=== PATIENT | male | born 1990 | race Two or more races ===

== ENCOUNTER 2021-02-27 12:40 | Outpatient (REF) | payer MEDICAID, SELFPAY ==
--- NOTE | ~2021-02-27 | XR_ITS ---
EXAMINATION: LUMBAR SPINE AND CERVICAL SPINE CLINICAL INFORMATION: Lumbago with sciatica left side COMPARISON: None TECHNIQUE: 5 views cervical spine. Lumbar spine 3 views. FINDINGS: Lumbar spine: There is normal lumbar lordosis. The vertebral heights, alignment and disc heights are normal. The paravertebral soft tissues are normal. Cervical spine: There is normal cervical lordosis. The vertebral heights, alignment and disc heights are normal. The neural foramina are widely patent bilaterally. No acute fracture, dislocation or lytic process seen. The prevertebral soft tissues are normal. XR/XR cervical spine 4V IMPRESSION: Unremarkable lumbar spine exam. Unremarkable cervical spine exam.
--- NOTE | ~2021-02-27 | XR_ITS ---
EXAMINATION: LUMBAR SPINE AND CERVICAL SPINE CLINICAL INFORMATION: Lumbago with sciatica left side COMPARISON: None TECHNIQUE: 5 views cervical spine. Lumbar spine 3 views. FINDINGS: Lumbar spine: There is normal lumbar lordosis. The vertebral heights, alignment and disc heights are normal. The paravertebral soft tissues are normal. Cervical spine: There is normal cervical lordosis. The vertebral heights, alignment and disc heights are normal. The neural foramina are widely patent bilaterally. No acute fracture, dislocation or lytic process seen. The prevertebral soft tissues are normal. XR/XR lumbar spine 2-3V IMPRESSION: Unremarkable lumbar spine exam. Unremarkable cervical spine exam.
== END 2021-02-27 12:41 | disposition home or self-care (01) ==
LOC: HO.XRAY 12:40
PROVIDERS: PCP Internal Medicine Geriatric Medicine; Visit Provider Emergency Medicine
DX: M54.2 Cervicalgia (principal); M54.42 Lumbago with sciatica, left side
CPT/HCPCS: 72050; 72100

== ENCOUNTER 2021-05-09 19:52 | Emergency (ER) | payer MEDICAID, SELFPAY | END 2021-05-09 21:26 | disposition left against medical advice (07) | PROVIDERS: Emergency Provider Emergency Medicine | DX: R19.7 Diarrhea, unspecified (principal) ==

== ENCOUNTER 2021-11-12 21:54 | Emergency (ER) | payer MEDICAID, SELFPAY ==
--- NOTE | 2021-11-12 | ECG_ITS ---
Test Reason : ABDOMINAL PAIN Blood Pressure : / mmHG Vent. Rate : 130 BPM Atrial Rate : 130 BPM P-R Int : 136 ms QRS Dur : 088 ms QT Int : 300 ms P-R-T Axes : 077 089 011 degrees QTc Int : 441 ms Sinus tachycardia Right atrial enlargement Nonspecific ST abnormality Abnormal ECG No previous ECGs available Referred By: Generic ED Physician Electronically Signed By:ESTHER FRITZ
--- NOTE | ~2021-11-12 | CT_ITS ---
EXAMINATION: CT ABDOMEN AND PELVIS WITHOUT CONTRAST CLINICAL INFORMATION: Question kidney stone COMPARISON: None TECHNIQUE: Multidetector volumetric imaging was performed from the superior aspect of the liver through the pubic symphysis. Sagittal and coronal reformatted images were obtained on the technologist's workstation. This CT examination was performed using dose optimization techniques as appropriate, variously including the following: *Automated exposure control *Adjustment of mA and/or kV according to patient size (this includes techniques or standardized protocols for targeted exams where dose is matched to indication/reason for exam; i.e. extremities or head) *Use of iterative reconstruction technique DLP: 349 mGy-cm FINDINGS: LUNG BASES: The visualized lung bases are unremarkable. LIVER, GALLBLADDER, AND BILIARY TREE: The liver is normal in size, shape, and attenuation. No focal hepatic lesion or biliary ductal dilatation is present. The gallbladder is unremarkable with no evidence of radiopaque gallstones, gallbladder wall thickening, or obvious pericholecystic inflammatory changes. PANCREAS: Unremarkable. SPLEEN: Unremarkable. ADRENAL GLANDS: Unremarkable. KIDNEYS AND URETERS: The kidneys are normal in size, shape, and attenuation. No hydronephrosis, hydroureter, or calculi seen. No perinephric stranding. BLADDER: Unremarkable. GASTROINTESTINAL TRACT: The small and large bowel are unremarkable. The appendix is unremarkable. ABDOMINAL WALL: No significant hernia is appreciated. LYMPH NODES: Normal. VASCULAR: Unremarkable. PELVIC VISCERA: Unremarkable. OSSEOUS STRUCTURES: Unremarkable. CT/CT abdomen pelvis wo IV con IMPRESSION: No significant abnormality. No renal calculi are detected. Fleischner guidelines were followed.
--- NOTE | ~2021-11-12 | US_ITS ---
EXAMINATION: US SCROTUM CLINICAL INFORMATION: Right testicular pain.. COMPARISON: None TECHNIQUE: A sonogram of the scrotum was performed assessing bates-scale appearance and color Doppler flow. Spectral Doppler analysis of the arterial and venous flow were performed in the testes bilaterally. FINDINGS: RIGHT: Right testicle measures 4.2 x 2 x 2.4 cm, volume 10.7 mL. No focal testicular parenchymal lesions are visualized. Spectral Doppler analysis of the arterial and venous flow is normal in the right testis. Right epididymal head is normal in size. No right hydrocele or varicocele is seen. Right epididymal Doppler flow is normal. LEFT: Left testicle measures 4.7 x 1.9 x 2.8 cm, volume 13.3 mL. No focal testicular parenchymal lesions are visualized. Spectral Doppler analysis of the arterial and venous flow is normal in the left testis. Left epididymal head is normal in size. No left hydrocele or varicocele is seen. Left epididymal Doppler flow is normal. US/US scrotum IMPRESSION: Normal testicular ultrasound. No testicular torsion.
--- NOTE | ~2021-11-12 | US_ITS ---
EXAMINATION: US SCROTUM CLINICAL INFORMATION: Right testicular pain.. COMPARISON: None TECHNIQUE: A sonogram of the scrotum was performed assessing bates-scale appearance and color Doppler flow. Spectral Doppler analysis of the arterial and venous flow were performed in the testes bilaterally. FINDINGS: RIGHT: Right testicle measures 4.2 x 2 x 2.4 cm, volume 10.7 mL. No focal testicular parenchymal lesions are visualized. Spectral Doppler analysis of the arterial and venous flow is normal in the right testis. Right epididymal head is normal in size. No right hydrocele or varicocele is seen. Right epididymal Doppler flow is normal. LEFT: Left testicle measures 4.7 x 1.9 x 2.8 cm, volume 13.3 mL. No focal testicular parenchymal lesions are visualized. Spectral Doppler analysis of the arterial and venous flow is normal in the left testis. Left epididymal head is normal in size. No left hydrocele or varicocele is seen. Left epididymal Doppler flow is normal. US/US scrotum doppler IMPRESSION: Normal testicular ultrasound. No testicular torsion.
[2021-11-12 22:22] VITALS: BP 142/88; PULSE 124; RESP 18; TEMP 36.7; O2SAT 98; BMI 21.1
--- NOTE | 2021-11-12 23:34 | ED_ITS ---
HPI - General Adult General Chief complaint: General Medical Stated complaint: testicular pain Time Seen by Provider: 11/12/21 22:37 History of Present Illness HPI narrative: Patient is 31 years old presents today with having right-sided right lower quadrant pain radiating down to the testicle. The pain is sharp sudden onset patient feels very weak. Sexually active 1 partner. Denies any penile discharge. No vomiting no abdominal surgery in the past. Patient is from home Related Data Previous Rx's Medication Instructions Recorded ibuprofen 400 mg tablet 400 mg PO Q6H PRN pain #20 tabs 11/13/21 Allergies Allergy/AdvReac Type Severity Reaction Status Date / Time No Known Allergies Allergy Verified 11/12/21 22:22 [No Known Allergies*] Review of Systems Review of Systems: Positive right lower quadrant pain positive nausea Positive testicular pain Yes all other systems are reviewed and are negative [facility] Past Medical History Attestation statement: The following information was validated with the patient. Social History Social History Advance Directives: No Advance Directives Information Provided: No Physical Exam ED Vital Signs: Vital Signs - 24 hr 11/12/21 22:22 11/13/21 00:02 11/13/21 00:08 Temperature 98.1 F 98.5 F 98.1 F Pulse Rate 124 H 105 H 93 Respiratory Rate 18 19 10 L Blood Pressure 142/88 H 127/76 107/48 L Pulse Oximetry 98 97 96 Oxygen Delivery Method Room Air Room Air Room Air BMI result Body Mass Index 21.1 Appearance: Alert. Oriented X3. No acute distress. Eyes: Pupils equal, round and reactive to light. ENT: Pharynx normal. Neck: Normal inspection. Neck supple. No lymph nodes noted. No crepitus CVS: Normal heart rate and rhythm. Pulses normal. Normal S1 and S2 Respiratory: No respiratory distress. Breath sounds normal. No Wheezing. No rales Abdomen: Soft and nontender. No rigidity. No distention. good BS x4 Skin: Skin warm and dry. Normal skin color. Normal skin turgor. exam there is cream is Elton reflex that is intact. There is no testicular tenderness on palpatio of the testicles. The testicles are nonenlarged. There is no gross hernia that was palpable. There is no discharge and stripping of the penis. Extremities: No lower extremity edema. Neurovascular intact to all extremities. No Lacerations. No Rash Neuro: Oriented X 3. No motor deficit. No sensory deficit. Moving all extermities. No slurred speech Medical Decision Making MDM Narrative Medical decision making narrative: Ultrasound of the testicle was negative for any acute evidence of inflammation in epididymis. No evidence for torsion. Patient's urine showed no signs of infection. Positive history of diabetes which is known to patient. Patient's CT scan of the abdomen negative for any acute evidence of kidney stone, obstruction, abscess. No evidence for appendicitis. Will discharge patient home. Lab Data Result diagrams: 11/12/21 23:59 11/13/21 00:23 Labs: Lab Results 11/12/21 11/13/21 11/13/21 Range/Units 23:59 00:23 01:31 WBC 9.6 (4.8-10.8) X10*3/uL RBC 5.22 (4.60-5.80) X10*6/uL Hgb 15.3 (14.0-18.0) g/dl Hct 43.5 (42.0-52.0) % MCV 83.3 (80.0-98.0) fL MCH 29.3 (27.0-33.0) pg MCHC 35.2 (31.0-36.0) g/dl RDW 11.9 (11.0-16.0) % Plt Count 240 (160-400) X10*3/uL MPV 10.2 (9.4-12.4) fL Immature Gran % (Auto) 0.6 H (0.0-0.4) % Neut % (Auto) 69.9 (45-73) % Lymph % (Auto) 17.8 L (20-40) % [place] % (Auto) 11.2 H (2-11) % Eos % (Auto) 0.0 (0-4) % Baso % (Auto) 0.5 (0-2) % Lymph # (Auto) 1.7 (1.2-4.9) X10*3/uL [place] # (Auto) 1.1 (0.1-1.2) X10*3/uL Eos # (Auto) 0.0 (0.0-0.4) X10*3/uL Baso # (Auto) 0.1 (0.0-0.2) X10*3/uL Abs Immat Gran (auto) 0.06 H (0.00-0.03) X10*3/uL Absolute Neuts (auto) 6.7 (2.0-8.3) x10*3/uL Absolute Nucleated RBC 0.000 (0.0-0.012) X10*3/uL Nucleated RBC % (auto) 0.0 (0.0-0.2) /100WBC Sodium 140 (135-145) mmol/L Potassium 3.3 (3.3-5.1) mmol/L Chloride 104 (96-108) mmol/L Carbon Dioxide 25 (22-29) mmol/L Anion Gap 14 (12-20) BUN 12 (9-16) mg/dL Creatinine 0.75 (0.5-1.4) mg/dL Estim Creat Clear Calc 119.9 Estimated GFR > 60 Random Glucose 134 H (60-115) mg/dL Calcium 9.6 (8.4-10.2) mg/dL Urine Color Yellow Urine Appearance Clear Urine pH 6.0 (5.0-9.0) Ur Specific [place] 1.020 (1.005-1.025) Urine Protein Negative (Neg-Trace) mg/dL Urine Glucose (UA) >=1000 H (Negative) mg/dL Urine Ketones Negative (Negative) mg/dL Urine Blood Negative (Negative) Urine Nitrite Negative (Negative) Ur Leukocyte Esterase Negative (Negative) Urine RBC 0-2 (0-2) /HPF Urine WBC 0-5 (0-5) /HPF Ur Squamous Epith Cells 0-2 (0-2) /HPF Urine Bacteria None Seen (None Seen) Hyaline Casts 0-2 (0-2) /LPF Discharge Plan Discharge Clinical Impression: Abdominal pain Patient Disposition: Home, Self-Care Instructions: Abdominal Pain (ED) Prescriptions: New ibuprofen 400 mg tablet 400 mg PO Q6H PRN (Reason: pain) Qty: 20 0RF Referrals: Physician,Unknown J [Primary Care Provider] -
[2021-11-13 00:02] VITALS: BP 127/76; PULSE 105; RESP 19; TEMP 36.9; O2SAT 97
[2021-11-13] MEDS: Ketorolac Tromethamine 30 MG/ML VIAL IVPUSH (00:04)
[2021-11-13] MEDS: 0.9 % Sodium Chloride 1,000 ML 999 ML IV (00:04)
[2021-11-13 00:08] VITALS: BP 107/48; PULSE 93; RESP 10; TEMP 36.7; O2SAT 96
[2021-11-13 00:37] LABS: MANUAL DIFF FLAG NO
[2021-11-13 00:53] LABS: Basophils Absolute Auto 0.1 X10*3/uL (0.0-0.2); Basophils Percent Auto 0.5 % (0-2); Hematocrit 43.5 % (42.0-52.0); Hemoglobin 15.3 g/dl (14.0-18.0); Imm Gran Abs Auto 0.06 X10*3/uL (0.00-0.03); Imm Gran Pct Auto 0.6 % (0.0-0.4); Lymphocytes Absolute Auto 1.7 X10*3/uL (1.2-4.9); Lymphocytes Percent Auto 17.8 % (20-40); Mean Corpuscular HGB Conc 35.2 g/dl (31.0-36.0); Mean Corpuscular Hemoglobin 29.3 pg (27.0-33.0); Mean Corpuscular Volume 83.3 fL (80.0-98.0); Mean Platelet Volume 10.2 fL (9.4-12.4); Monocytes Absolute Auto 1.1 X10*3/uL (0.1-1.2); Monocytes Percent Auto 11.2 % (2-11); Neutrophils Absolute Auto 6.7 x10*3/uL (2.0-8.3); Neutrophils Percent Auto 69.9 % (45-73); Platelet Count 240 X10*3/uL (160-400); Red Blood Count 5.22 X10*6/uL (4.60-5.80); Red Cell Distribution Width 11.9 % (11.0-16.0); White Blood Count 9.6 X10*3/uL (4.8-10.8)
[2021-11-13 01:11] LABS: Anion Gap 14 (12-20); Blood Urea Nitrogen 12 mg/dL (9-16); Calcium 9.6 mg/dL (8.4-10.2); Carbon Dioxide 25 mmol/L (22-29); Chloride 104 mmol/L (96-108); Creatinine Clr Calc Pharmacy 119.9; Estimated Glomerular Filt Rate > 60; Glucose Random 134 mg/dL (60-115); Potassium 3.3 mmol/L (3.3-5.1); Sodium 140 mmol/L (135-145)
[2021-11-13 01:40] LABS: Appearance Urine Clear; Color Urine Yellow; Glucose Urine UA >=1000 mg/dL (Negative); Leukocyte Esterase Urine Negative (Negative); Nitrite Urine Negative (Negative); UMIC TRIGGER UACC YES; Urine Blood Negative (Negative); Urine Ketones Negative (Negative); Urine Protein Negative (Neg-Trace)
[2021-11-13 01:45] LABS: Bacteria Urine None Seen (None Seen); Hyaline Casts Urine 0-2 /LPF (0-2); RBC Urine 0-2 /HPF (0-2); Squamous Epithelial Cell Urine 0-2 /HPF (0-2); WBC Urine 0-5 /HPF (0-5)
[2021-11-13 03:17] LABS: CT PCR NOT DETECTED (Not Detect.); NG PCR NOT DETECTED (Not Detect.)
== END 2021-11-13 02:10 | disposition home or self-care (01) ==
PROVIDERS: Physician Assistant; Emergency Provider Emergency Medicine Emergency Medical Services
DX: R10.31 Right lower quadrant pain (principal); E11.9 Type 2 diabetes mellitus without complications
CPT/HCPCS: 36415; 74176; 76870; 80048; 81001; 85025; 87491; 87591; 93005; 93975; 96374; 99284; J1885

== ENCOUNTER 2021-12-15 12:48 | Emergency (ER) | payer MEDICAID, SELFPAY ==
--- NOTE | ~2021-12-15 | XR_ITS ---
EXAMINATION: XR CHEST CLINICAL INFORMATION: Chest wall pain. COMPARISON: None TECHNIQUE: 2 views of the chest were obtained. FINDINGS: No significant abnormality is noted involving the heart, lungs, mediastinum, bony thorax or soft tissues. XR/XR chest 2V IMPRESSION: No acute cardiopulmonary process.
--- NOTE | 2021-12-15 12:56 | ECG_ITS ---
Test Reason : CHEST PAIN Blood Pressure : / mmHG Vent. Rate : 103 BPM Atrial Rate : 103 BPM P-R Int : 120 ms QRS Dur : 086 ms QT Int : 346 ms P-R-T Axes : 070 083 041 degrees QTc Int : 453 ms Sinus tachycardia Otherwise normal ECG When compared with ECG of 12-NOV-2021 22:36, T wave inversion no longer evident in Inferior leads Referred By: Generic ED Physician Electronically Signed By:ANA APULA LYLES MD
[2021-12-15 13:03] VITALS: BP 137/82; PULSE 104; RESP 16; TEMP 36.6; O2SAT 99; BMI 23.6
[2021-12-15 13:16] LABS: MANUAL DIFF FLAG NO
[2021-12-15 13:17] LABS: Basophils Absolute Auto 0.1 X10*3/uL (0.0-0.2); Basophils Percent Auto 0.9 % (0-2); Eosinophils Percent Auto 0.2 % (0-4); Hemoglobin 15.9 g/dl (14.0-18.0); Imm Gran Abs Auto 0.01 X10*3/uL (0.00-0.03); Imm Gran Pct Auto 0.2 % (0.0-0.4); Lymphocytes Absolute Auto 1.1 X10*3/uL (1.2-4.9); Mean Corpuscular HGB Conc 34.6 g/dl (31.0-36.0); Mean Corpuscular Hemoglobin 29.3 pg (27.0-33.0); Mean Corpuscular Volume 84.9 fL (80.0-98.0); Mean Platelet Volume 10.1 fL (9.4-12.4); Monocytes Absolute Auto 0.6 X10*3/uL (0.1-1.2); Monocytes Percent Auto 10.5 % (2-11); Neutrophils Absolute Auto 3.9 x10*3/uL (2.0-8.3); Neutrophils Percent Auto 68.2 % (45-73); Platelet Count 273 X10*3/uL (160-400); Red Blood Count 5.42 X10*6/uL (4.60-5.80); Red Cell Distribution Width 11.9 % (11.0-16.0); White Blood Count 5.6 X10*3/uL (4.8-10.8)
[2021-12-15 13:42] LABS: Troponin-I High Sensitivity < 3.5 ng/L (<3.5-35.0)
[2021-12-15 13:46] LABS: Anion Gap 16 (12-20); Blood Urea Nitrogen 13 mg/dL (9-16); Calcium 9.7 mg/dL (8.4-10.2); Carbon Dioxide 26 mmol/L (22-29); Chloride 93 mmol/L (96-108); Creatinine Clr Calc Pharmacy 67.5; Estimated Glomerular Filt Rate 58; Glucose Random 612 mg/dL (60-115); Potassium 4.4 mmol/L (3.3-5.1); Sodium 131 mmol/L (135-145)
--- NOTE | 2021-12-15 13:55 | ED_ITS ---
HPI - General Adult General Chief complaint: General Medical Stated complaint: chest pain/neck pain Time Seen by Provider: 12/15/21 13:53 Source: patient Mode of arrival: ambulatory Limitations: no limitations History of Present Illness HPI narrative: 31 yo male with history of type 1 diabetes diagnosed at age 28 who presents to the ER for evaluation of intermittent left sided chest pains as well as intermittent blurred vision. He states yesterday morning at 2am he woke up with some discomfort in his left chest, sharp that would wax/wane and come and go. No associated SOB, nausea or diaphoresis. He went to work where he developed blurred vision. He denies headache. He states his is in [place], he has been taking care of his children by himself and thinks he may have missed a Lantus dose by mistake. +polyuria and polydipsia. No fever or chills. Chest pain currently very mild. MD complaint: chest pain and blurred vision Onset (ago): day(s) (2) Location: eyes and chest Radiation: non-radiation Severity: moderate Quality: aching and sharp Pain Consistency: intermittent Relieving factors: none Exacerbating factors: none Associated symptoms: chest pain Treatments prior to arrival: none Related Data Previous Rx's Medication Instructions Recorded ibuprofen 400 mg tablet 400 mg PO Q6H PRN pain #20 tabs 11/13/21 Allergies Allergy/AdvReac Type Severity Reaction Status Date / Time No Known Allergies Allergy Verified 11/12/21 22:22 [No Known Allergies*] Review of Systems Review of Systems: Constitutional: No Fever, No Chills ENT/Mouth: No sore throat, No Rhinorrhea, No Swallowing Difficulty Eyes: No Eye Pain, No Swelling, No Redness, +Blurred vision Cardiovascular: + Chest Pain, No SOB, No Orthopnea, No Edema Respiratory: No Cough, No Sputum, No Wheezing, No dyspnea Gastrointestinal: No Nausea, No Vomiting, No Diarrhea, No abdominal Pain, No Hematochezia, No Melena Genitourinary: No Dysuria, No Urinary Frequency, No Hematuria Musculoskeletal: No joint pain, No Myalgias Skin: No Skin Lesions, No rash Neuro: No Weakness, No Numbness, +Dizziness, No Headache Psych: No Anxiety/Panic, No Depression Heme/Lymph: No Bruising, No Lymphadenopathy Endocrine: + Polyuria, + Polydipsia PMFSH Social History Social History Advance Directives: No Advance Directives Information Provided: Yes Physical Exam ED Vital Signs: Vital Signs - 24 hr 12/15/21 13:03 12/15/21 14:00 12/15/21 15:27 Temperature 98 F 97.6 F 98.0 F Pulse Rate 104 H 80 83 Respiratory Rate 16 16 16 Blood Pressure 137/82 148/66 H 141/68 H Pulse Oximetry 99 100 98 Oxygen Delivery Method Room Air Room Air Room Air BMI result Body Mass Index 23.6 Appearance: Alert. Oriented X3. No acute distress. Eyes: Pupils equal, round and reactive to light. ENT: Pharynx normal. Neck: Normal inspection. Neck supple. CVS: Normal heart rate and rhythm. Pulses normal. Respiratory: No respiratory distress. Breath sounds normal. Abdomen: Soft and nontender. +BS x4 Skin: Skin warm and dry. Normal skin color. Normal skin turgor. No rashes. Extremities: No lower extremity edema. Neuro: Oriented X 3. No motor deficit. No sensory deficit. CN II-XII intact. Steady gait Course Course Course Narrative: 31 yo male with history of DM1 here with hyperglycemia to 600s with reports of left sided chest discomfort x1-2 days and blurred vision. EKG abnormal but overall improved from prior. Minimal chest pain now, +chest wall tenderness. CXR clear. Labs without anion gap, bicarb normal. Not DKA. No change in mental status to suggest HHS. Will treat with IVF x2 L and 5 units IV insulin for now. Will monitor closely. Reevaluation(s) Reevaluation #1: repeat glucose in the 200s. He is feeling much better and would like to go home. He is stable for d/c home. Encouraged med and dietary compliance. Stable for d/c home. Will refer to cardiology given his abnormal EKG, family history and risk factors. Medical Decision Making Lab Data Result diagrams: 12/15/21 13:13 12/15/21 13:13 Labs: Lab Results 12/15/21 12/15/21 12/15/21 Range/Units 13:13 13:13 13:13 WBC 5.6 (4.8-10.8) X10*3/uL RBC 5.42 (4.60-5.80) X10*6/uL Hgb 15.9 (14.0-18.0) g/dl Hct 46.0 (42.0-52.0) % MCV 84.9 (80.0-98.0) fL MCH 29.3 (27.0-33.0) pg MCHC 34.6 (31.0-36.0) g/dl RDW 11.9 (11.0-16.0) % Plt Count 273 (160-400) X10*3/uL MPV 10.1 (9.4-12.4) fL Immature Gran % (Auto) 0.2 (0.0-0.4) % Neut % (Auto) 68.2 (45-73) % Lymph % (Auto) 20.0 (20-40) % [place] % (Auto) 10.5 (2-11) % Eos % (Auto) 0.2 (0-4) % Baso % (Auto) 0.9 (0-2) % Lymph # (Auto) 1.1 L (1.2-4.9) X10*3/uL [place] # (Auto) 0.6 (0.1-1.2) X10*3/uL Eos # (Auto) 0.0 (0.0-0.4) X10*3/uL Baso # (Auto) 0.1 (0.0-0.2) X10*3/uL Abs Immat Gran (auto) 0.01 (0.00-0.03) X10*3/uL Absolute Neuts (auto) 3.9 (2.0-8.3) x10*3/uL Absolute Nucleated RBC 0.000 (0.0-0.012) X10*3/uL Nucleated RBC % (auto) 0.0 (0.0-0.2) /100WBC Sodium 131 L (135-145) mmol/L Potassium 4.4 D (3.3-5.1) mmol/L Chloride 93 L (96-108) mmol/L Carbon Dioxide 26 (22-29) mmol/L Anion Gap 16 (12-20) BUN 13 (9-16) mg/dL Creatinine 1.43 H (0.5-1.4) mg/dL Estim Creat Clear Calc 67.5 Estimated GFR 58 POC Glucose (60-115) mg/dL Random Glucose 612 H* (60-115) mg/dL Calcium 9.7 (8.4-10.2) mg/dL Troponin I High Sens < 3.5 (<3.5-35.0) ng/L 12/15/21 Range/Units 15:22 WBC (4.8-10.8) X10*3/uL RBC (4.60-5.80) X10*6/uL Hgb (14.0-18.0) g/dl Hct (42.0-52.0) % MCV (80.0-98.0) fL MCH (27.0-33.0) pg MCHC (31.0-36.0) g/dl RDW (11.0-16.0) % Plt Count (160-400) X10*3/uL MPV (9.4-12.4) fL Immature Gran % (Auto) (0.0-0.4) % Neut % (Auto) (45-73) % Lymph % (Auto) (20-40) % [place] % (Auto) (2-11) % Eos % (Auto) (0-4) % Baso % (Auto) (0-2) % Lymph # (Auto) (1.2-4.9) X10*3/uL [place] # (Auto) (0.1-1.2) X10*3/uL Eos # (Auto) (0.0-0.4) X10*3/uL Baso # (Auto) (0.0-0.2) X10*3/uL Abs Immat Gran (auto) (0.00-0.03) X10*3/uL Absolute Neuts (auto) (2.0-8.3) x10*3/uL Absolute Nucleated RBC (0.0-0.012) X10*3/uL Nucleated RBC % (auto) (0.0-0.2) /100WBC Sodium (135-145) mmol/L Potassium (3.3-5.1) mmol/L Chloride (96-108) mmol/L Carbon Dioxide (22-29) mmol/L Anion Gap (12-20) BUN (9-16) mg/dL Creatinine (0.5-1.4) mg/dL Estim Creat Clear Calc Estimated GFR POC Glucose 227 H (60-115) mg/dL Random Glucose (60-115) mg/dL Calcium (8.4-10.2) mg/dL Troponin I High Sens (<3.5-35.0) ng/L Scores Heart Score History: -0- slightly suspicious ECG: -1- non specific repolarization disturbance Age: -0- < or = 45 Risk factory: -1- 1 or 2 risk factors Troponin: -0- < or = normal limit Score: 2 Risk: 1.7% Critical Care Time Critical Care Time Critical Care Time: Yes Total Critical Care Time: 35 Attestation: I have personally provided critical care time exclusive of time spent on separately billable procedures. Time includes review of lab data, radiology results, frequent bedside reassessment and monitoring for potential decompensation. Intervention performed as documented. Discharge Plan Discharge Clinical Impression: Hyperglycemia Patient Disposition: Home, Self-Care Instructions: Diabetic Hyperglycemia (ED) Additional Instructions: Take your insulin every day as directed. Do not miss any doses. Count your carbs, avoid food high in carbohydrates and sugars. Your chest x-ray was normal. Your EKG was abnormal, but improved from October. Recommend following up with Cardiology - call the office to arrange an appointment. If you develop new or worsening symptoms call 911 or come back to the ER for further evaluation. Cardwell murray insulina todos los d?as seg?n las indicaciones. No te pierdas ninguna dosis. Cuente veronique carbohidratos, evite los alimentos ricos en carbohidratos y az?cares. Murray radiograf?a de t?rax fue normal. Murray electrocardiograma fue anormal, gunner mejor? a partir de . Recomiende hacer un seguimiento con Cardiolog?a: llame a la oficina para programar mariola crystal. Si desarrolla s?ntomas nuevos o que empeoran, llame al 911 o regrese a la roxanne de emergencias para mariola evaluaci?n adicional. Prescriptions: No Action ibuprofen 400 mg tablet 400 mg PO Q6H PRN (Reason: pain) Qty: 20 0RF Referrals: [facility] [Provider Group] (abnormal EKG) Print Language: Marshallese
[2021-12-15 14:00] VITALS: BP 148/66; PULSE 80; RESP 16; TEMP 36.4; O2SAT 100
[2021-12-15] MEDS: 0.9 % Sodium Chloride 1,000 ML 999 ML IVCONT (14:15)
[2021-12-15] MEDS: Insulin Regular, Human 100 UNIT/ML 3 ML VIAL IVPUSH (14:18)
--- NOTE | 2021-12-15 14:20 | PC.NURSE ---
iv inserted, vss, ivf hung per order, will continue to monitor
[2021-12-15] MEDS: Lactated Ringers 1,000 ML 999 ML IV (15:23)
[2021-12-15 15:27] VITALS: BP 141/68; PULSE 83; RESP 16; TEMP 36.7; O2SAT 98
--- NOTE | 2021-12-15 15:28 | PC.NURSE ---
repeat poc performed 227, second lt of fluid hung per order, vss, pt was found eating cookies, this nurse asked him to please not eat them, pt agreeable, will continue to monitor
[2021-12-15 15:33] LABS: Glucose, Whole Blood 227 mg/dL (60-115)
[2021-12-16 05:12] LABS: Hemoglobin A1c % > 14.0 %
== END 2021-12-15 16:44 | disposition home or self-care (01) ==
PROVIDERS: Physician Assistant; Emergency Provider Emergency Medicine
DX: E10.65 Type 1 diabetes mellitus with hyperglycemia (principal); R07.89 Other chest pain; M54.2 Cervicalgia; H53.8 Other visual disturbances; Z79.899 Other long term (current) drug therapy
CPT/HCPCS: 36415; 71046; 80048; 82947; 83036; 84484; 85025; 93005; 96365; 96375; 99284

== ENCOUNTER 2022-08-23 20:23 | Emergency (ER) | payer MEDICAID, SELFPAY ==
[2022-08-23 20:27] VITALS: BP 142/98; PULSE 113; O2SAT 96
[2022-08-23 20:30] VITALS: BP 121/86; PULSE 112; RESP 20; TEMP 37; O2SAT 95; BMI 20.4
--- NOTE | 2022-08-23 21:09 | PC.NURSE ---
Pt ambulatory to restroom with c-collar on. advised that he should get back into bed until medically cleared. adamant about using actual toilet and states its fine.
--- NOTE | 2022-08-23 21:31 | PC.NURSE ---
Pt with call light on at this time. self removed c-collar and monitor equipment stating he feels better and wanting to leave. ambulatory out of department with steady gait in no acute distress. advised to come back for worsening symptoms.
== END 2022-08-23 21:38 | disposition left against medical advice (07) ==
PROVIDERS: Emergency Provider Emergency Medicine
DX: Z04.1 Encounter for examination and observation following transport accident (principal); R00.0 Tachycardia, unspecified; R07.81 Pleurodynia; M25.512 Pain in left shoulder
CPT/HCPCS: 99281; 99284

== ENCOUNTER 2022-10-28 02:48 | Inpatient (IN) | payer MEDICAID, SELFPAY ==
[2022-10-28] VITALS (20 sets, daily range): BP systolic 97–163; BP diastolic 64–93; PULSE 85–109; RESP 16–30; TEMP 32.2–37.8; O2SAT 94–100; BMI 18.4
--- NOTE | ~2022-10-28 | CT_ITS ---
EXAMINATION: CT CHEST, ABDOMEN AND PELVIS WITH CONTRAST CLINICAL INFORMATION: Confusion. Concern for pneumonia. DKA. COMPARISON: CT abdomen and pelvis performed 11/12/2021. TECHNIQUE: Multidetector volumetric imaging was performed through the chest, abdomen and pelvis without intravenous contrast. Sagittal and coronal reformatted images were obtained on the technologist's workstation. Axial MIP volume rendering provided. This CT examination was performed using dose optimization techniques as appropriate, variously including the following: *Automated exposure control *Adjustment of mA and/or kV according to patient size (this includes techniques or standardized protocols for targeted exams where dose is matched to indication/reason for exam; i.e. extremities or head) *Use of iterative reconstruction technique DLP: 223.75+412.73 mGy-cm FINDINGS: CHEST: Motion slightly limits evaluation. Cloth Finishing Range Operator Chief: Unremarkable. Lungs: There is patchy consolidation at both lung bases. The lungs are otherwise clear. Mediastinum: The mediastinum is normal. Central vascular structures are unremarkable. No hilar or mediastinal lymphadenopathy. Pericardium/Pleura: There is no significant effusion. No pleural mass or thickening. Chest Wall/Axilla: Unremarkable. ABDOMEN/PELVIS: Liver, Gallbladder, Biliary Tree: The liver is normal in size and attenuation. No focal liver lesions are seen. There is no intrahepatic biliary duct dilatation. The gallbladder is normal in appearance. Pancreas: Unremarkable. Spleen: Unremarkable. Adrenal Glands: Unremarkable. Kidneys and Ureters: The kidneys are normal in size, shape, and attenuation. No hydronephrosis or hydroureter or calculi seen. No perinephric stranding. There is subcentimeter hypodensity mid pole right kidney too small to characterize but likely a small cyst. Bladder: The urinary bladder is distended. Gastrointestinal Tract: There is mild gastric distention with an air-fluid level. The appendix is not seen. There is limitation related to unopacified bowel as well as a small amount of intra-abdominal fat. Abdominal Wall: No hernia is demonstrated. Lymphovascular Structures: Lymph nodes: Normal. Vascular: Unremarkable. Pelvic Viscera: Unremarkable. There is minimal free fluid within the pelvis. OSSEOUS STRUCTURES: There is bilateral sacroiliac subchondral sclerosis. No fracture is seen. CT/CT abdomen pelvis wo IV con IMPRESSION: The study is limited by motion as well as lack of oral and IV contrast and minimal intra-abdominal fat. Bibasilar patchy consolidation most consistent with pneumonia. Mild gastric distention with an air-fluid level. Distended urinary bladder. No acute intra-abdominal process. Fleischner guidelines were utilized.
--- NOTE | ~2022-10-28 | XR_ITS ---
EXAMINATION: XR CHEST CLINICAL INFORMATION: DKA. Concern for pneumonia. COMPARISON: 12/15/2021. TECHNIQUE: Frontal view of the chest was obtained. FINDINGS: The cardiomediastinal silhouette is stable. There are increased interstitial markings/atelectatic change at the lung bases. The lungs are otherwise clear. There are no significant pleural effusions. The bony structures and soft tissues are unremarkable XR/XR chest 1V IMPRESSION: Increased interstitial markings/atelectatic change at the lung bases. There is no focal lung consolidation or evidence for significant pleural effusion.
--- NOTE | ~2022-10-28 | CT_ITS ---
EXAMINATION: CT HEAD WITHOUT CONTRAST CLINICAL INFORMATION: Confusion. COMPARISON: None available. TECHNIQUE: Contiguous axial imaging was performed from the skull base to vertex without intravenous administration of contrast. This CT examination was performed using dose optimization techniques as appropriate, variously including the following: *Automated exposure control *Adjustment of mA and/or kV according to patient size (this includes techniques or standardized protocols for targeted exams where dose is matched to indication/reason for exam; i.e. extremities or head) *Use of iterative reconstruction technique DLP: 641.91 mGy-cm FINDINGS: The lateral, third and fourth ventricles are normally outlined. The cortical sulci and basal cisterns are normally outlined as well. There is no acute territorial defect, hemorrhage or midline shift. The extra-axial spaces are unremarkable. Calvarium: Intact. Maxillofacial sinuses and mastoids: There is a right maxillary sinus opacity. The remaining visualized maxillofacial sinuses and mastoids are clear. CT/CT head/brain wo IV con IMPRESSION: No acute intracranial pathology. Right maxillary sinus opacity of uncertain acuity and current significance.
[2022-10-28] MEDS: 0.9 % Sodium Chloride 2,000 ML 999 ML IV (02:59)
--- NOTE | 2022-10-28 03:01 | ED_ITS ---
HPI - General Adult General Chief complaint: Overdose Stated complaint: od Time Seen by Provider: 10/28/22 02:56 Source: patient Mode of arrival: EMS History of Present Illness HPI narrative: 32-year-old male who is brought in by EMS when patient was found by police department in hallway of an apartment building. 4 mg of Narcan were admi nistered by please, patient states he has only taken cocaine but patient is somnolent and a poor historian at this point. We did give 4mg of Narcan here in the emergency room but little response. Related Data Previous Rx's Medication Instructions Recorded ibuprofen 400 mg tablet 400 mg PO Q6H PRN pain #20 tabs 11/13/21 Allergies Allergy/AdvReac Type Severity Reaction Status Date / Time Penicillins Allergy Rash Verified 08/23/22 20:30 Review of Systems Review of Systems: Yes Unobtainable due to mental condition PMFSH Past Medical History Source: nursing notes reviewed Social History Social History Advance Directives: No Advance Directives Information Provided: Yes Physical Exam ED Vital Signs: Vital Signs - 24 hr 10/28/22 02:51 Respiratory Rate 25 H Blood Pressure 163/93 H Pulse Oximetry 99 Oxygen Delivery Method Room Air BMI result Body Mass Index 18.4 VITAL SIGNS: Reviewed. GENERAL: Thin, in no acute distress. HEAD: Normocephalic/atraumatic EYES: PERRLA, EOMI EARS: Ext canals without abnormality NOSE: Nares patent bilateral OROPHARYNX: no oral lesions noted, posterior pharynx clear, dry mucosa NECK: Supple, no adenopathy LUNGS: Tachypnea, SpO2<99> CARDIOVASCULAR: Regular rate and rhythm without noted murmurs ABDOMEN: Soft, non-tender, non-distended with bowel sounds. MUSCULOSKELETAL: No tenderness, deformities, or effusions noted on gross inspection. EXTREMITIES: No cyanosis, clubbing or edema. SKIN: Inspection of the skin reveals no rashes NEUROLOGIC:Lethargic and oriented x 2. Strength and sensation to light touch were grossly intact x 4. Medications Administered Generic Name Dose Route Start Last Admin Trade Name Freq PRN Reason Stop Dose Admin Lactated Ringer's 2,000 mls @ 999 mls/hr 10/28/22 03:30 10/28/22 04:10 Lr IV 10/28/22 05:30 999 mls/hr .Q2H1M CIRILO Administration Insulin Human Regular 100 unit in 100 mls @ 5 mls/hr 10/28/22 04:00 10/28/22 04:15 Myxredlin IVCONT 5 unit/hr .Q20H CIRILO 5 mls/hr Administration Protocol 5 UNIT/HR Lactated Ringer's 1,000 mls @ 200 mls/hr 10/28/22 04:15 10/28/22 04:28 Lr IVCONT 200 mls/hr .Q5H CIRILO Administration Discontinued Medications Generic Name Dose Route Start Last Admin Trade Name Freq PRN Reason Stop Dose Admin Sodium Chloride 2,000 mls @ 999 mls/hr 10/28/22 03:00 10/28/22 02:59 Ns IV 10/28/22 05:00 999 mls/hr .Q2H1M CIRILO Administration Naloxone HCl 4 mg 10/28/22 03:19 10/28/22 03:29 Naloxone Hcl Nasal 4 Mg [place] NOSTRILALT 10/28/22 03:20 4 mg ONCE ONE Administration Sodium Bicarbonate 50 meq 10/28/22 03:24 10/28/22 03:29 Sodium Bicarbonate 8.4% 50 Meq/50 Ml Syringe IVPUSH 10/28/22 03:25 50 meq ONCE ONE Administration Sodium Bicarbonate 100 meq 10/28/22 04:10 10/28/22 04:31 Sodium Bicarbonate 8.4% 50 Meq/50 Ml Syringe IVPUSH 10/28/22 04:11 100 meq ONCE ONE Administration Medical Decision Making Medical Decision Making [facility] Narrative: 0303: DKA I reviewed all investigations and patient's lab work is consistent with severe dehydration secondary to DKA with metabolic acidosis mother leukocytosis is nothing to do with infection, beta hydroxybutyrate-14.10. Pseudohyponatremia and CATHY. 0324: 50 mEq sodium bicarb given IV push for pH -6.7 0350: Consulting with mat machine operator. Patient has been admitted 0440: I discussed case S with Dr. Shin who accepts admission. Differential Diagnosis Differential Diagnoses: The differential diagnosis associated with the presentation includes Please see the discussion Admission/Observation Consideration of admission/observation: Escalation of care including admission/observation considered Please see the discussion above Consult Healthcare Provider Management of the patient was discussed with: [employer]ing Unit Operator Please see the discussion above Lab Data [facility] Lab Attestation statement: I reviewed the patient's lab results. Please see the discussion above 10/28/22 03:03 10/28/22 03:03 Labs: Lab Results 10/28/22 10/28/22 10/28/22 Range/Units 03:03 03:03 03:03 WBC 22.2 H (4.8-10.8) X10*3/uL RBC 6.01 H (4.60-5.80) X10*6/uL Hgb 18.1 H (14.0-18.0) g/dl Hct 54.9 H (42.0-52.0) % MCV 91.3 (80.0-98.0) fL MCH 30.1 (27.0-33.0) pg MCHC 33.0 (31.0-36.0) g/dl RDW 12.5 (11.0-16.0) % Plt Count 413 H D (160-400) X10*3/uL MPV 10.5 (9.4-12.4) fL Immature Gran % (Auto) Cancelled Neut % (Auto) Cancelled Lymph % (Auto) Cancelled D[place]key % (Auto) Cancelled Eos % (Auto) Cancelled Baso % (Auto) Cancelled Lymph # (Auto) Cancelled Dickey # (Auto) Cancelled Eos # (Auto) Cancelled Baso # (Auto) Cancelled Abs Immat Gran (auto) Cancelled Absolute Neuts (auto) Cancelled Absolute Nucleated RBC 0.000 (0.0-0.012) X10*3/uL Nucleated RBC % (auto) 0.0 (0.0-0.2) /100WBC Neutrophils % (Manual) 64 (45-73) % Band Neutrophils % 20 H (3-5) % Lymphocytes % (Manual) 7 L (20-40) % Monocytes % (Manual) 8 (2-11) % Metamyelocytes % 1 % Abs Neuts (Manual) 18.6 H (2.0-8.3) X10*3/uL Lymphocytes # (Manual) 1.6 (1.2-4.9) X10*3/uL Monocytes # (Manual) 1.8 H (0.1-1.2) X10*3/uL Metamyelocytes # 0.2 X10*3/uL Platelet Estimate NORMAL (NORMAL) Plt Morphology Comment NORMAL RBC Morphology NORMAL VBG pH (7.32-7.43) VBG pCO2 mmHg VBG pO2 mmHg VBG HCO3 (22-26) mmol/L VBG O2 Saturation % VBG Base Excess mmol/L Sodium 128 L (135-145) mmol/L Potassium 4.5 (3.3-5.1) mmol/L Chloride 96 (96-108) mmol/L Carbon Dioxide < 5 L* D (22-29) mmol/L Anion Gap TNP BUN 20 H (9-16) mg/dL Creatinine 2.07 H (0.5-1.4) mg/dL Estim Creat Clear Calc 38.5 Estimated GFR 37 POC Glucose 545 H* (60-115) mg/dL Random Glucose 626 H* (60-115) mg/dL Calcium 10.0 (8.4-10.2) mg/dL Total Bilirubin 0.2 (0.0-1.0) mg/dL AST 42 H (5-37) U/L ALT 30 (0-40) U/L Alkaline Phosphatase 244 H (39-117) U/L Total Protein 9.6 H (6.5-8.0) g/dL Albumin 5.3 H (3.5-5.0) g/dL Beta-Hydroxybutyrate 14.10 H (0.02-0.27) mmol/L Ethyl Alcohol mg/dL 10/28/22 10/28/22 10/28/22 Range/Units 03:06 03:11 03:52 WBC (4.8-10.8) X10*3/uL RBC (4.60-5.80) X10*6/uL Hgb (14.0-18.0) g/dl Hct (42.0-52.0) % MCV (80.0-98.0) fL MCH (27.0-33.0) pg MCHC (31.0-36.0) g/dl RDW (11.0-16.0) % Plt Count (160-400) X10*3/uL MPV (9.4-12.4) fL Immature Gran % (Auto) Neut % (Auto) Lymph % (Auto) D[place] % (Auto) Eos % (Auto) Baso % (Auto) Lymph # (Auto) [place] # (Auto) Eos # (Auto) Baso # (Auto) Abs Immat Gran (auto) Absolute Neuts (auto) Absolute Nucleated RBC (0.0-0.012) X10*3/uL Nucleated RBC % (auto) (0.0-0.2) /100WBC Neutrophils % (Manual) (45-73) % Band Neutrophils % (3-5) % Lymphocytes % (Manual) (20-40) % Monocytes % (Manual) (2-11) % Metamyelocytes % % Abs Neuts (Manual) (2.0-8.3) X10*3/uL Lymphocytes # (Manual) (1.2-4.9) X10*3/uL Monocytes # (Manual) (0.1-1.2) X10*3/uL Metamyelocytes # X10*3/uL Platelet Estimate (NORMAL) Plt Morphology Comment RBC Morphology VBG pH 6.68 L* (7.32-7.43) VBG pCO2 15 mmHg VBG pO2 83 mmHg VBG HCO3 2 L (22-26) mmol/L VBG O2 Saturation 93.0 % VBG Base Excess -34.5 mmol/L Sodium (135-145) mmol/L Potassium (3.3-5.1) mmol/L Chloride (96-108) mmol/L Carbon Dioxide (22-29) mmol/L Anion Gap BUN (9-16) mg/dL Creatinine (0.5-1.4) mg/dL Estim Creat Clear Calc Estimated GFR POC Glucose 511 H* (60-115) mg/dL Random Glucose (60-115) mg/dL Calcium (8.4-10.2) mg/dL Total Bilirubin (0.0-1.0) mg/dL AST (5-37) U/L ALT (0-40) U/L Alkaline Phosphatase (39-117) U/L Total Protein (6.5-8.0) g/dL Albumin (3.5-5.0) g/dL Beta-Hydroxybutyrate (0.02-0.27) mmol/L Ethyl Alcohol < 10 mg/dL Independent Interpretation I performed an independent interpretation of an: EKG Interpretation: Normal sinus rhythm, HR-83, no STEMI, peaked T-waves, [place]/QRS within normal limits, prolonged QT and QTC. External Record Review External record reviewed: Outpatient record, Prior outpatient labs and Prior outpatient radiology Chronic Conditions Patient?s care impacted by: Diabetes Critical Care Time Critical Care Time Critical Care Time: Yes Total Critical Care Time: 45 Attestation: I personally attest to this time spent taking care of the patient. Discharge Plan Discharge Clinical Impression: DKA (diabetic ketoacidosis), CATHY (acute kidney injury), Cocaine use disorder Patient Disposition: Admitted As Inpatient
[2022-10-28 03:09] LABS: Glucose, Whole Blood 545 mg/dL (60-115)
--- NOTE | 2022-10-28 03:09 | PC.NURSE ---
PT biba. Found by PD unresponsive in apartment building hallway. 4mg of narcan administered by PD. While in EMS care pt was verbal to responsive to painful stimuli. Upon arrival to Ed, 4mg of narcan administered with negative effect. 20g IV access in left AC, EKG completed, labs drawn, POC 545, positive kussmaul respirations. 2l fluids running. Plan of care ongoing
[2022-10-28 03:14] LABS: Hematocrit 54.9 % (42.0-52.0); Hemoglobin 18.1 g/dl (14.0-18.0); Mean Corpuscular Hemoglobin 30.1 pg (27.0-33.0); Mean Corpuscular Volume 91.3 fL (80.0-98.0); Mean Platelet Volume 10.5 fL (9.4-12.4); Platelet Count 413 X10*3/uL (160-400); Red Blood Count 6.01 X10*6/uL (4.60-5.80); Red Cell Distribution Width 12.5 % (11.0-16.0); White Blood Count 22.2 X10*3/uL (4.8-10.8)
--- NOTE | 2022-10-28 03:15 | MHC.EDTECH ---
First 2 initial POC readings were critical high. Glucometer was QC and 3rd POC reading read at 545 MD and RN notified will recheck again in 15 minutes
[2022-10-28 03:18] LABS: VBG Base Excess -34.5 mmol/L; VBG HCO3 2 mmol/L (22-26); VBG pCO2 15 mmHg; VBG pH 6.68 (7.32-7.43); VBG pO2 83 mmHg
[2022-10-28 03:20] LABS: Venous Blood Gas Refer to POC result
--- OUTSIDE RECORDS SUMMARY | 2022-10-28 03:23 | XMS_ITS | Continuity of Care Document ---
Author Name Unknown Organization [facility] ter Address [address] [place] [id number] Care Team Providers Care Sales Promotion Director Name Role Phone Name Scott RICHTER Primary Care Physician Encounter [facility] Date(s): 05/04/22 - 05/05/[address] [address] Encounter Diagnosis Hives(Final) - 05/04/22 Discharge Disposition: A-D/C Home Attending Physician: Colleen Rider MD Admitting Physician: Migel Christina MD Referring Physician: Not on Staff, Referring MD Allergies, Adverse Reactions, Alerts Substance Reaction Severity Status aspirin Active Immunizations Given and Recorded Vaccine Date Status Refusal Reason SARS-CoV-2 (COVID-19) mRNA BNT-162b2 vac 02/28/21 Recorded SARS-CoV-2 (COVID-19) mRNA BNT-162b2 vac 07/11/20 Recorded SARS-CoV-2 (COVID-19) mRNA BNT-162b2 vac 06/20/20 Recorded Medications Humalog Kwik Pen 100 units/mL subcutaneous injection INJECT PER SLIDING SCALE BLOOD SUGAR 200-250 = 10 UNITS, 250-300 = 15 UNITS, 301-350 = 20 UNITS, 351-400 = 25 UNITS. NO MORE THAN 100 UNITS DAILY Start Date: 05/04/22 Status: Ordered Lantus Solostar Pen 100 units/mL subcutaneous solution = 18 units, Subcutaneous Injection, Daily, # 15 mL, 10 Refills, Maintenance, 05/05/22 11:08:00 EDT,Injection, [facility], Partial fill upon patient request if the prescription is for aschedule II opioid drug., 168, cm, 05/04/22 16:13:0... Start Date: 05/05/22 Status: Ordered Vital Signs Most recent to oldest [Reference Range]: 1 2 3 Height 168 cm (05/04/22 4:13 PM) 168 cm (05/04/22 8:39 AM) 168 cm (05/04/22 8:34 AM) Weight 57.3 kg (05/04/22 4:13 PM) Oxygen Saturation [94-100 %] 96 % (05/05/22 12:00 PM) 99 % (05/05/22 11:00 AM) 99 % (05/05/22 10:00 AM) Pulse Rate [55-90 bpm] 86 bpm (05/05/22 11:00 AM) 97 bpm *H* (05/05/22 8:00 AM) 104 bpm *H* (05/05/22 4:00 AM) Body Mass Index [18.5-24.99 kg/m2] 20.3 kg/m2 (05/04/22 4:13 PM) Blood Pressure [90-138/55-84 mm Hg] 130/92mm Hg (05/05/22 12:00 PM) 127/94mm Hg (05/05/22 11:00 AM) 129/82mm Hg (05/05/22 10:00 AM) Respiratory Rate [16-30 br/min] 19 br/min (05/05/22 12:00 PM) 21 br/min (05/05/22 11:00 AM) 16 br/min (05/05/22 10:00 AM) Temperature [96.8-100.4 DegF] 98.0 DegF (05/05/22 11:00 AM) 97.6 DegF (05/05/22 8:00 AM) 97.5 DegF (05/05/22 4:00 AM) Mode of Delivery (Oxygen) Room air (05/05/22 11:00 AM) Room air (05/05/22 10:00 AM) Room air (05/05/22 8:00 AM) Blood pressure sites Arm, left (05/05/22 2:00 AM) Arm, left (05/05/22 1:00 AM) Arm, left (05/05/22 12:00 AM) Temperature Route Oral (05/05/22 11:00 AM) Oral (05/05/22 8:00 AM) Oral (05/05/22 4:00 AM) Dry Weight 57.3 kg (05/04/22 4:13 PM) 53.5 kg (05/04/22 8:39 AM) 53.5 kg (05/04/22 8:34 AM) Weight Obtained Via bed (05/04/22 4:13 PM) Patient/family stated (05/04/22 8:34 AM) Dry Weight Obtained Via Standing scale (05/04/22 8:34 AM) History and physical note * Arcadio Mckeon MD: PERFORM, SIGN, VERIFY Event Display: History and Physical Hospital Authored Date: [id number] Patient: NISHANT BAH Age: 31 years Sex: Male : 1990 Associated Diagnoses: None Author: Arcadio Mckeon MD Visit Information Chief Complaint: itchy rash and bumps on the skin. History of Present Illness The pt is a 31 yo M w pmhx of IDDM, who is under many social stressors, including but not limited to stress from loosing his mother, getting , on the process of leaving the house including 2 kids. He has not been taking his insulins properly for the past 3 dys. He also started a new parfum.He developed sudden raised itchy bumps on his shoulders, chest and some on the thighs. He presentedto the ED for this and given Benadryl. He is also found to have electrolyte disturbances and elevated BG and beta hydroxy butyrate and started on DKA protocol. Past Medical History IDDM Problem list All Problems Hives / SNOMED CT [id number] / Provisional Allergies Allergic Reactions (Selected) Severity Not Documented Aspirin- No reactions were documented. Current medications (Selected) Inpatient Medications Ordered 0.9% NaCL 1000mL w/KCL 20mEq 1,000 mL: 1,000 mL, Infusion, IV Infusion, 1,000 mL, 150 mL/hr, Infuseover 6.7 hr, Continue until D/C'd Unless duration specified, Routine, 05/04/22 14:28:00 EDT, 1.6, m2 Benadryl Inj: 25 mg, Injection, IV Push, Every 4 hours, PRN for Itch, Routine, 05/04/22 17:02:00 EDT Benadryl Tablet: 50 mg, Tablet, By Mouth, Every 8 hours for 3 days, PRN for Itch, Routine, 05/04/2316:02:00 EDT, Stop date 05/07/22 17:01:00 EDT Famotidine Inj: 20 mg, Injection, IV Push Slowly, Every 12 hours for 3 days, Dilute in 5mL of NaCL and push over 2 minute., Routine, 05/04/22 18:00:00 EDT, Stop date 05/07/22 17:59:00 EDT Insulin R 100 units in 100 mL Premix 100 units [5 units/hr] + NaCL 0.9% Premixed IV 100 mL: 100 mL,Infusion, IV Infusion, 100 mL, 5 mL/hr, Infuse over 20 hr, Unless duration specified Continue untilD/C'd, Routine, 05/04/22 13:21:00 EDT, 53.5 kg NaCL 0.9% Flush: 3 mL, Injection, IV Push, Every 8 hours, Routine, 05/04/22 14:00:00 EDT predniSONE 20 mg oral tablet: 20 mg, Tablet, By Mouth, Daily, STAT, 05/04/22 16:31:00 EDT Documented Medications Documented Humalog Kwik Pen 100 units/mL subcutaneous injection: INJECT PER SLIDING SCALE BLOOD SUGAR 200-250 = 10 UNITS, 250-300 = 15 UNITS, 301-350 = 20 UNITS, 351-400 = 25 UNITS. NO MORE THAN 100 UNITS DAILY Lantus Solostar Pen 100 units/mL subcutaneous solution: = 18 units, Subcutaneous Injection, Daily, 0 Refills, Maintenance, 05/04/22 15:53:00 EDT, Partial fill upon patient request if the prescriptionis for a schedule II opioid drug. Surgical History Denies Social History Smokes 3 cigarettes a day. Smokes Marijuana often before sleep. Has 2 children. Works at [employer]. Family History Positive for DM Review of Systems Significant Constitutional, Eye, Skin, Head/Neck, ENMT, Respiratory, Cardio, Gastrointestinal, Genitourinary, Endocrine, Muscoloskeletal, Immunologic, Hematologic, Lymphatic, Neurologic, Psych reviewed and negative except as noted above. Physical Examination Vital Signs Vitals 05/04/2022 15:20 EDT Pulse Rate 93 bpm H Respiratory Rate 16 br/min Systolic Blood Pressure 131 mm Hg Diastolic Blood Pressure 83 mm Hg Blood pressure sites Arm, left Oxygen Saturation 99 % Mode of Delivery (Oxygen) Room air . Height : Height 05/04/2022 8:39 EDT Height 168 cm 05/04/2022 8:34 EDT Height 168 cm . General Appearance: No apparent distress, Appears stated age. HEENT Head: Normocephalic, Atraumatic. Eyes: EOMI, PERRL, not Icteric. Oropharynx: Slightly dry mucosa. Neck: Supple, No lymphadenopathy. Cardiovascular Cardiac: PMI Non displaced, RRR, No M/G/R. Respiratory Respiratory: CTA, no wheezes, no crackles. Abdomen/GI Non-distended. Normal bowel sounds. Soft non-tender. No hepatosplenomegaly. No Herniae present. Extremities No clubbing. No cyanosis. No edema. Derm itchy, raised, red, or skin-colored welts . Neurologic Neuro Exam: CN 2-12 normal. Motor Exam: Motor strength WNL. Reflex Exam: Babinski absent. Psychiatric Appearance WNL. Speech WNL. Thought processes WNL. Depressed. Results Review 7 day results Labs & Documents Laboratory : LABORATORY 05/04/2022 16:36 EDT Glucose, POC 264 mg/dL H 05/04/2022 15:40 EDT Hemoglobin (POC) POC Cartridge 16.3 Gm/dL Hematocrit (POC) POC Cartridge 48 % Sodium (POC) POC Cartridge 134 mmol/L Potassium (POC) POC Cartridge 4.4 mmol/L Chloride (POC) POC Cartridge 102 mmol/L Glucose (POC) POC Cartridge 261 H BUN (POC) POC Cartridge 10 mg/dL Creatinine (POC) POC Cartridge 0.6 mg/dL L Ionized Calcium (POC) POC Cartridge 1.17 mmol/L 05/04/2022 14:14 EDT pH Venous (POC) POC Cartridge 7.34 pCO2 Venous (POC) POC Cartridge 32.7 mm Hg L pO2 Venous (POC) POC Cartridge 60 mm Hg H Est Bicarbonate (POC) POC Cartridge 17.7 mmol/L L % O2 Sat Venous (POC) POC Cartridge 90 Base Excess (POC) POC Cartridge NEGATIVE 8 Specimen Type - Blood Gas VENOUS Hemoglobin (POC) POC Cartridge 15.6 Gm/dL Hematocrit (POC) POC Cartridge 46 % Sodium (POC) POC Cartridge 133 mmol/L Potassium (POC) POC Cartridge 4.1 mmol/L Glucose (POC) POC Cartridge 304 H Ionized Calcium (POC) POC Cartridge 1.14 mmol/L 05/04/2022 13:30 EDT COVID-19 by RT-PCR NEGATIVE 05/04/2022 13:03 EDT Sodium 132 mmol/L L Potassium 4.4 mmol/L Chloride 95 mmol/L L Bicarbonate Level 17 mmol/L L Anion Gap 20 H Glucose Level 322 mg/dL H Calcium 9.1 mg/dL Magnesium 1.9 mg/dL 05/04/2022 13:02 EDT Glucose, POC 274 mg/dL H 05/04/2022 10:26 EDT pH Venous (POC) POC Cartridge 7.28 L pCO2 Venous (POC) POC Cartridge 29.6 mm Hg L pO2 Venous (POC) POC Cartridge 70 mm Hg H Est Bicarbonate (POC) POC Cartridge 13.8 mmol/L L % O2 Sat Venous (POC) POC Cartridge 92 Base Excess (POC) POC Cartridge NEGATIVE 13 Specimen Type - Blood Gas VENOUS Hemoglobin (POC) POC Cartridge 16.0 Gm/dL Hematocrit (POC) POC Cartridge 47 % Sodium (POC) POC Cartridge 130 mmol/L L Potassium (POC) POC Cartridge 3.8 mmol/L Glucose (POC) POC Cartridge 275 H Ionized Calcium (POC) POC Cartridge 1.12 mmol/L L 05/04/2022 9:23 EDT Glucose, POC 255 mg/dL H 05/04/2022 9:17 EDT pH, Venous 7.28 L WBC 8.1 k/mm3 RBC 5.74 m/mm3 Hgb 16.9 Gm/dL Hct 49.9 % MCV 86.9 femtoliters MCH 29.4 pg MCHC 33.9 g/dL Platelet Count 251 k/mm3 RDW-SD 37.6 femtoliters MPV 10.2 femtoliters Nucleated RBC (Automated) 0.0 #/100 WBC'S Abs. NRBC 0.0 k/mm3 Sodium 129 mmol/L L Potassium 4.3 mmol/L Chloride 91 mmol/L L Bicarbonate Level 13 mmol/L L Anion Gap 25 H Glucose Level 296 mg/dL H Beta Hydroxybutyrate 5.43 mmol/L H BUN 10 mg/dL Creatinine-Blood 0.5 mg/dL L Estimated GFR Creatinine 141 ML/MIN/1.73 M2 Calcium 9.1 mg/dL Phosphorus 2.9 mg/dL Magnesium 2.1 mg/dL EKG QTC Calculation(Bazett): 479 ms P [place]: 74 degrees R [place]: 81 degrees T [place]: 37 degrees Normal sinus rhythm Normal ECG Impression and Plan DKA Due to Insulin noncompliance Plan -Admit to intercare, likely brief -Insulin gtt per DKA protocol -Follow lytes and replace prn -NPO except clears for now Urticaria Likely due to new parfum Plan -Start Prednisone 20 mg po daily x 3 dys -Benadryl 50 mg po tid x 3 dys, and prn IV -Famotidine 20 mg IV bid, than po x 3 dys -Avoid aforementioned new parfum Depression No thought or action for self harm or harm to the others Plan -Behavioral consult in am if possible -Needs to reconnect with his counselor as outpt, stopped seeing one Quality Measures Dvt, moderate risk, Lovenox NPO x clears and advance per DKA protocol Full code EKG study * Event Display: ECG 12-Lead Authored Date: Please click on pdf link to open report * Event Display: ECG 12-Lead Authored Date: Ventricular Rate: 99 BPM Atrial Rate: 99 BPM P-R Interval: 118 ms QRS Duration: 88 ms Q-T Interval: 374 ms QTC Calculation(Bazett): 479 ms P [place]: 74 degrees R [place]: 81 degrees T [place]: 37 degrees Normal sinus rhythm Normal ECG No previous ECGs available Confirmed by ALIZA SALDIVAR MD ([id number]) on 05/04/2022 12:29:06 PM [place]: ALIZA SALDIVAR MD Note * Event Display: Cardiac Rhythm Strips Authored Date: * An García RN: PERFORM Event Display: Discharge/Transfer Note Hospital Authored Date: [id number] Nursing Discharge Note Entered On: 05/05/2022 12:10 EDT Performed On: 05/05/2022 12:09 EDT by Erica Ramirez RN Nursing Discharge Note 2 Discharge Time : 05/05/2022 13:39 EDT Discharge Comments : Nurse on DbB reviewed all d/c paperwork with patient. Pt verbalizes understanding. Lantus and Lispro sliding scale not new for patient. An García RN - 05/05/2022 13:39 EDT Discharge Level of Care at Discharge : Home/[facility] Patient Left Unit Via : Wheelchair Patient Accompanied Off Unit with : Significant other DC Instructions Provided & Signed by Pt : Yes Patient Understands D/C Instructions : Yes Verbalized Understanding of D/C Plan By : Family, Patient Patient Instructions Discharge Signed : Yes Did Pt have Specialty Bed or Wound Vac : No James HAILE, Erica - 05/05/2022 12:09 EDT * Tammie Kelly MD, Erich: PERFORM Event Display: Discharge/Transfer Note Hospital Authored Date: Patient: ??NISHANT BAH ? Age:??31 Years?Sex:??Male?:??1990?? Patient Information Discharge Location: [facility] Primary Care Physician: Scott Greco MD Admit Date/Time: 05/04/22 12:17 Discharge Disposition Discharge Disposition: Home: No Services Discharge Diagnosis DKA _ Discharge Medications Insulin Glargine (Lantus Solostar Pen 100 units/mL subcutaneous solution)?18?unit(s)?Subcutaneous Injection?Daily Insulin Lispro (Humalog Kwik Pen 100 units/mL subcutaneous injection)?INJECT PER SLIDING SCALE BLOOD SUGAR 200-250 = 10 UNITS, 250-300 = 15 UNITS, 301-350 = 20 UNITS, 351-400 = 25 UNITS. NO MORE THAN 100 UNITS DAILY Medications Started None Medications Discontinued None Doses Changed None Hospital Course Nishant Bah is a 31 year old man with medical history of insulin dependent DM2 that is admitted to due to abdominal pain found to be in DKA.?Hospital course started when patient??developed??nausea, vomiting, abdominal pain.??Patient has been going through??stressful??lifesituations including of mother,??leaving the home,??and divorce of , and patient has not been taking insulin for the last few days.??Patient??went to ??ED for furtherevaluation, was found to have??elevated??blood glucose and elevated 6 hydroxybutyrate consistent with DKA.?Patient was started on insulin drip overnight,??next morning was able to transition to home regimen??insulin??glargine 18 units??and Humalog sliding scale.??Patient tolerating p.o.,??havingno issues??with mentation,??and??blood sugars are controlled.??No longer having abdominal pain,??patient likely??discharged home??with refills of his insulin??to be sent out to his home pharmacy. Patient hemodynamically stable in no distress at the time of discharge. ?? Objective Assessment and Plan Assessment:??Nishant Bah is a 31 year old man with medical history of insulin dependent DM2 that isadmitted to due to abdominal pain found to be in DKA. ?? Diabetes: DKA: Patient initially presenting with abdominal pain and nausea. Has not been taking insulin for the??last 3 days due to life stressors. Initial blood sugars are??300s with hydroxybutyrate of 5 concerning for DKA. Was started on??insulin drip??overnight. Next morning??patient??tolerating p.o.,??having no pain,??with improved??mentation. Blood sugars now??stable??at 160s. Patient to be discharged home??with refills of insulin. Patient to follow-up with PCP??for further management??of his diabetes. ?? Plan: Insulin refill sent to his home pharmacy. PCP follow-up. ?? Patient??discussed with attending physician ?? Erich Jaimes MD, PGY-2 #[id number] ?? . Physical Exam Constitutional: Alert, in no distress. Mental Status: Oriented to person, place and time.. Neck: Supple, Full range of motion. Respiratory: Clear to auscultation. No wheezing, rales or rhonchi. Cardiovascular: S1 S2 regular. No murmurs, rubs or gallops. Gastrointestinal: Abdomen soft, non-tender, non-distended. Normal bowel sounds. No pulsatile mass. No hepatosplenomegaly. Genitourinary: No costovertebral angle tenderness. Skin: No rashes or lesions. No petechiae or purpura.?? Musculoskeletal: No cyanosis or clubbing. No gross deformities. Normal range of motion. Psychiatric: Normal mood and affect Pending Results Add On Lab Order ordered on 05/04/2022 COVID-19 (2019 Novel Coronavirus) PCR ordered on 05/05/2022 Urinalysis w/hold for Urine Culture ordered on 05/04/2022 Patient Instructions Hospital Course: Dear Nishant Esquivel: Presented to due to abdominal pain and vomiting??for further evaluation revealed??elevated blood sugar. The symptoms are known as diabetic ketoacidosis, which is a consequence of??not taking your insulin.?? You were given your insulin back to??with good response. Please make sure to take your insulin every single day??and to never miss any doses. Please follow-up with your??primary care provider for further management??of your insulin. Thank you for trusting with your care. Stay safe, Dr. Erich Kelly ?? New medication: None ?? Discontinued medication: None ?? Medication that changed dose: None ?? Please come back to the ED if:?? Abdominal pain Nausea??and vomiting Chest pain Shortness of breath Run out of insulin. 32 minutes spent on discharge * Colleen Rider MD: PERFORM Event Display: Discharge/Transfer Note Hospital Authored Date: Attending Attestation: I have seen and evaluated this patient.?? I have discussed the case and its management with the resident and agree with the findings and plan as documented in the resident???s note. * Erica Ramirez RN: PERFORM Event Display: Patient Education/Instruction Authored Date: Inpatient Adult Discharge Instructions [address] [address] Name: NISHANT BAH : 1990 Visit: 05/04/2022 12:17:00 Current Date: 05/05/2022 12:10 Account: [id number] Inpatient Adult Discharge Instructions We would like to thank you for allowing us to assist you with your healthcare needs. The following includes patient education materials and information regarding your injury/illness. Our entire staffstrives to provide an excellent experience for our patients and their families. PLEASE ENSURE YOU FOLLOW-UP PER THE INSTRUCTIONS BELOW! ?? YOUR OPINION IS IMPORTANT TO US! Please complete the survey you may receive by mail or email. Your feedback will be used to make improvements to the healthcare experiences of our patients and their families. Surveys are administered by [employer] ?? If further treatment with your primary care physician or another doctor is recommended, it is important for you to keep the appointment. Call your primary care physician or return to the Emergency Department immediately if your condition worsens, fails to improve, or new symptoms develop. If you need to find a doctor, you can call [facility] for a referral at [phone] or toll free at [phone] or log in to [email or web address] ?? You can view and manage your care through the patient portal or by using a health care lyric of your choosing. [employer] is a website that allows you to securely view your medical information including your hospital discharge summary, office visit summaries, medications and follow-up visits. You can also request appointments, renew medications, and request access to your medical information using a health care lyric of your choosing, or just ask a question. You can enroll at [email or web address] or register during your next office visit. You have been discharged from , Patient Care Unit: D6B. If you have any questions regarding these instructions after you leave, please call us and we will be happy to assist you. Your Care Team Attending Physician Colleen Rider MD Discharging Providers Erich Valdes MD Reason for Admission General medical Your Diagnosis Hives Tests Performed Below is a partial list of the tests performed during your hospitalization. You may have had other tests and procedures not included in this list. Please discuss all test results with your provider. BASE EXCESS POC CARTRIDGE Basic Metabolic Panel Beta Hydroxybutyrate BUN POC CARTRIDGE CALCIUM IONIZED POC CART Calcium Level CBC CHLORIDE POC CARTRIDGE COVID-19 (Novel Coronavirus), Rapid PCR CREATININE POC CARTRIDGE Electrolytes Glucose Level GLUCOSE POC GLUCOSE POC CARTRIDGE HEMATOCRIT POC CARTRIDGE HEMOGLOBIN POC CARTRIDGE Magnesium Level pH Venous PHOSPHORUS POTASSIUM POC CARTRIDGE SODIUM POC CARTRIDGE VBG POC CARTRIDGE Primary Care Provider Name Scott RICHTER Advance Directive Health Care Proxy on File No Patient refuses to discuss Discharge Vitals Temperature: 98 DegF Height: 168 cm Pulse Rate: 86 bpm Weight: 57.3 kg Respiratory Rate: 19 br/min Body Mass Index: 20.3 kg/m2 Systolic Blood Pressure: 130 mm Hg Body surface area: 1.64 Diastolic Blood Pressure:??92 mm Hg??High ?? Oxygen Saturation: 96 % ?? Studies Pending All tests and labs ordered during this hospital stay have been completed unless listed below. Please discuss all pending results with your provider listed above in these instructions. ?? Add On Lab Order COVID-19 (2019 Novel Coronavirus) PCR Urinalysis w/hold for Urine Culture What to do next Instructions From Your Doctor Hospital Course: Dear Nishant Esquivel: Presented to due to abdominal pain and vomiting??for further evaluation revealed??elevated blood sugar. The symptoms are known as diabetic ketoacidosis, which is a consequence of??not taking your insulin.?? You were given your insulin back to??with good response. Please make sure to take your insulin every single day??and to never miss any doses. Please follow-up with your??primary care provider for further management??of your insulin. Thank you for trusting with your care. Stay safe, Dr. Erich Kelly ?? New medication: None ?? Discontinued medication: None ?? Medication that changed dose: None ?? Please come back to the ED if:?? Abdominal pain Nausea??and vomiting Chest pain Shortness of breath Run out of insulin. Discharge Orders Discharge Medications NISHANT BAH :1990 Visit Date:05/04/2022 Medications: Please continue your medications until treatment is completed or stopped by your provider. Medications not listed below should be discontinued. Discuss any questions related to medications with your provider. What How Much When Instructions Next Dose Changed Insulin Glargine (Lantus Solostar Pen 100 units/ mL subcutaneous solution) 18 unit(s) Subcutaneous Injection Daily Pickup at [facility] 3 Unchanged Insulin Lispro (Humalog Kwik Pen 100 units/ mL subcutaneous injection) INJECT PER SLIDING SCALE BLOOD SUGAR 200-250 = 10 UNITS, 250-300 = 15 UNITS, 301-350 = 20 UNITS, 351-400 = 25 UNITS. NO MORE THAN 100 UNITS DAILY ?? Pharmacy Information [facility] 3: [id number], [place] [id number] [phone] Test Results Below is a partial list of the most recent Laboratory test results done prior to this discharge. You may have had other tests and procedures not included in this list. Please discuss all test resultswith your provider. BASE EXCESS POC CARTRIDGE (05/04/2022) ???Base Excess (POC) POC Cartridge - NEGATIVE 8 Basic Metabolic Panel (05/04/2022) ???Sodium - 129 mmol/L???Potassium - 4.3 mmol/L???Chloride - 91 mmol/L???Bicarbonate Level - 13 mmol/L???Anion Gap - 25???Glucose Level - 296 mg/dL???BUN - 10 mg/dL???Creatinine-Blood - 0.5 mg/dL???Estimated GFR Creatinine - 141 ML/MIN/1.73 M2???Calcium - 9.1 mg/dL Beta Hydroxybutyrate (05/04/2022) ???Beta Hydroxybutyrate - 5.43 mmol/L BUN POC CARTRIDGE (05/04/2022) ???BUN (POC) POC Cartridge - 10 mg/dL CALCIUM IONIZED POC CART (05/04/2022) ???Ionized Calcium (POC) POC Cartridge - 1.17 mmol/L Calcium Level (05/05/2022) ???Calcium - 9.3 mg/dL CBC (05/04/2022) ???WBC - 8.1 k/mm3???RBC - 5.74 m/mm3???Hgb - 16.9 Gm/dL???Hct - 49.9 %???MCV - 86.9 femtoliters???MCH - 29.4 pg???MCHC - 33.9 g/dL???Platelet Count - 251 k/mm3???RDW-SD - 37.6 femtoliters???MPV - 10.2 femtoliters???Nucleated RBC (Automated) - 0.0 #/100 WBC'S???Abs. NRBC - 0.0 k/mm3 CHLORIDE POC CARTRIDGE (05/04/2022) ???Chloride (POC) POC Cartridge - 102 mmol/L COVID-19 (Novel Coronavirus), Rapid PCR (05/04/2022) ???COVID-19 by RT-PCR - NEGATIVE CREATININE POC CARTRIDGE (05/04/2022) ???Creatinine (POC) POC Cartridge - 0.6 mg/dL Electrolytes (05/05/2022) ???Sodium - 135 mmol/L???Potassium - 3.8 mmol/L???Chloride - 102 mmol/L???Bicarbonate Level - 23 mmol/L???Anion Gap - 10 Glucose Level (05/05/2022) ???Glucose Level - 142 mg/dL GLUCOSE POC (05/05/2022) ???Glucose, POC - 286 mg/dL GLUCOSE POC CARTRIDGE (05/04/2022) ???Glucose (POC) POC Cartridge - 261 HEMATOCRIT POC CARTRIDGE (05/04/2022) ???Hematocrit (POC) POC Cartridge - 48 % HEMOGLOBIN POC CARTRIDGE (05/04/2022) ???Hemoglobin (POC) POC Cartridge - 16.3 Gm/dL Magnesium Level (05/05/2022) ???Magnesium - 1.9 mg/dL pH Venous (05/04/2022) ???pH, Venous - 7.28 PHOSPHORUS (05/04/2022) ???Phosphorus - 2.9 mg/dL POTASSIUM POC CARTRIDGE (05/04/2022) ???Potassium (POC) POC Cartridge - 4.4 mmol/L SODIUM POC CARTRIDGE (05/04/2022) ???Sodium (POC) POC Cartridge - 134 mmol/L VBG POC CARTRIDGE (05/04/2022) ???pH Venous (POC) POC Cartridge - 7.34???pCO2 Venous (POC) POC Cartridge - 32.7 mm Hg???pO2 Venous(POC) POC Cartridge - 60 mm Hg???Est Bicarbonate (POC) POC Cartridge - 17.7 mmol/L???% O2 Sat Venous (POC) POC Cartridge - 90???Specimen Type - Blood Gas - VENOUS Allergies (NKA means No Known Allergies) aspirin Problems Active Problems??(1) Hives?? Education Materials Below is the list of Educational Leaflet Providered with your Discharge Instructions. Valuables and Belongings I fully understand and agree that [facility] accepts no responsibility for all my personal property including clothing, toilet articles, radios, jewelry, dentures, hearing aids, rings, money, or any other property that is in my possession or is brought to me after admission. I understand certain valuables may be placed in a hospital safe for a short period of time. I understand that the hospital is not liable for loss or damage due to accident, fire, or other natural occurrence while said property is in the safe. I accept full responsibility for any personal property that I keep with me, and will not hold the hospital responsible in case of loss or disappearance. I acknowledge that i have been encouraged to send valuables and belongings home. ?? Review of Valuable and Belonging List: With patient, With witness Disposition of Belongings: Sent home with patient/family Date for Pt to Sign Valuables/Belongings: 05/05/22 12:08:00 ?? Other Discharge Information ? Pulmonary Rehab Status?? Pulmonary Rehab Discharge Status?? Respiratory Rate: 19 br/min ? Common Emergency Awareness Tips IS IT A STROKE? Act FAST and Check for these signs: FACE Does the face look uneven? ARM Does one arm drift down? SPEECH Does their speech sound strange? TIME Call at any sign of stroke ?? Heart Attack Signs Chest discomfort: Most heart attacks involve discomfort in the center of the chest and lasts more than a few minutes, or goes away and comes back. It can feel like uncomfortable pressure, squeezing, fullness or pain. Discomfort in upper body: Symptoms can include pain or discomfort in one or both arms, back, neck, jaw or stomach. Shortness of breath: With or without discomfort. Other signs: Breaking out in a cold sweat, nausea, or lightheaded. Remember, MINUTES DO MATTER. If you experience any of these heart attack warning signs, call to get immediate medical attention! ?? Smoking can increase your chances of developing chronic health problems and can cause harmful effects to other family members in your house. If you smoke, you are strongly encouraged to quit. Please call [facility] at [phone] or [phone] ([phone]) or log in to [email or web address] for referrals to smoking cessation programs. ?? The National Suicide Prevention Hotline is available 15/09 if you or someone you know needs to find a reason to keep living. By calling 4-061-790-talk (8173) you'll be connected to a skilled, trained counselor at a crisis center in your area. INPATIENT DISCHARGE INSTRUCTIONS SIGNATURE PAGE NISHANT BAH Location: Registration Date and Time:05/04/2022 12:17 EDT Primary Care Physician: Scott Greco MD, I NISHANT BAH, have received the above patient education materials/instructions and have verbalized understanding. If ambulance or transport services are being used I further acknowledge being givena choice of service. ?? If you need to contact me, please call me at this number: . Patient/Fire Alarm Dispatcher Name: Patient/Fire Alarm Dispatcher Signature: Relationship to Patient: Witness Name/Signature: Date: Hospital Progress note * Colleen Fierro RN: PERFORM, SIGN, VERIFY Event Display: Progress Note Hospital Authored Date: [id number] Patient: NISHANT BAH Age: 31 years Sex: Male : 1990 Associated Diagnoses: None Author: Sri HAILE, Colleen Guevara Findings Problem Related to Alteration in Endocrine : Alteration in Endocrine Function/new 05/04/2022 21:00 EDT Alteration in Endocrine Related to DKA (Diabetic Ketoacidosis) Goals & Outcomes, Endocrine Blood glucose levels will stabilize during hospitalization, Pt willreceive/maintain adequate nutrition status, Pt will maintain adequate GI/ function appropriate for pt, Pt will resume/maintain adequate hemodynamic status, Vital signs, electrolytes & blood glucose will stabilize, Weight is stable or increasing to normal levels for pt, Pt will be maintained on sc insulin & appropriate diet, Pt will resume regular activities, Pt will verbalize psychosocial implications of diabetes Interventions, Endocrine Assess/monitor GI/ status, Teach Pt/caregiver signs & symptoms of hypoglycemia, Teach Pt/caregiver signs & symptoms of hyperglycemia, Teach Pt/caregiver use of homeglucose monitoring BH Goals/Interventions, Endocrine Yes Endocrine, Problem Start 05/04/2022 20:00 Reviewed Plan with, Endocrine Patient Patient Progression, Endocrine Plan Initiation . Nursing Data Cardiac Data. : Cardiac Data. 05/05/2022 2:00 EDT Cardiac Rhythm Normal sinus rhythm 05/05/2022 1:00 EDT Cardiovascular Assessment Status Unchanged from recorder's assessment Heart Rhythm Regular Cardiac Rhythm Normal sinus rhythm 05/05/2022 0:00 EDT Cardiac Rhythm Normal sinus rhythm 05/04/2022 21:00 EDT Cardiovascular Symptoms None Nail Bed Color, Fingers Drexel Nail Bed Color, Toes [place]el Skin Temperature Upper Extremities Warm Skin Temperature Lower Extremities Warm Cardiac Rhythm Normal sinus rhythm Radial Pulse, Left Normal Radial Pulse, Right Normal Dorsalis Pedis Pulse, Left Normal Dorsalis Pedis Pulse, Right Normal Edema None case monitor Yes Cardiovascular WNL except . Vital Signs : VITAL SIGNS SECTION 05/05/2022 2:22 EDT Early Warning Score 0.00 05/05/2022 2:22 EDT Early Warning Score 0.00 05/05/2022 2:11 EDT Early Warning Score 0.00 05/05/2022 2:04 EDT Early Warning Score 0.00 05/05/2022 2:00 EDT Heart Rate Monitored 94 bpm H Respiratory Rate 16 br/min Systolic Blood Pressure 116 mm Hg Diastolic Blood Pressure 84 mm Hg Blood pressure sites Arm, left Pulse Pressure 32 mm Hg Oxygen Saturation 97 % Mode of Delivery (Oxygen) Room air 05/05/2022 1:48 EDT Early Warning Score 0.00 05/05/2022 1:18 EDT Early Warning Score 0.00 05/05/2022 1:00 EDT Heart Rate Monitored 97 bpm H Respiratory Rate 15 br/min L Systolic Blood Pressure 120 mm Hg Diastolic Blood Pressure 87 mm Hg H Blood pressure sites Arm, left Pulse Pressure 33 mm Hg Oxygen Saturation 98 % Mode of Delivery (Oxygen) Room air 05/05/2022 0:19 EDT Early Warning Score 0.00 05/05/2022 0:00 EDT Temperature 98.3 DegF Temperature Route Oral Pulse Rate 95 bpm H Heart Rate Monitored 94 bpm H Respiratory Rate 12 br/min L Systolic Blood Pressure 122 mm Hg Diastolic Blood Pressure 89 mm Hg H Blood pressure sites Arm, left Pulse Pressure 33 mm Hg Oxygen Saturation 100 % Mode of Delivery (Oxygen) Room air 05/04/2022 23:02 EDT Early Warning Score 2.00 05/04/2022 22:45 EDT Early Warning Score 2.00 Early Warning Score 2.00 05/04/2022 22:16 EDT Early Warning Score 2.00 05/04/2022 22:00 EDT Heart Rate Monitored 100 bpm H Respiratory Rate 16 br/min Systolic Blood Pressure 112 mm Hg Diastolic Blood Pressure 85 mm Hg H Blood pressure sites Arm, left Pulse Pressure 27 mm Hg 05/04/2022 20:17 EDT Early Warning Score 2.00 05/04/2022 20:06 EDT Early Warning Score 2.00 05/04/2022 20:00 EDT Temperature 97.7 DegF Temperature Route Oral Pulse Rate 100 bpm H Heart Rate Monitored 99 bpm H Respiratory Rate 20 br/min Systolic Blood Pressure 118 mm Hg Diastolic Blood Pressure 84 mm Hg Blood pressure sites Arm, left Pulse Pressure 34 mm Hg Oxygen Saturation 98 % Mode of Delivery (Oxygen) Room air . Narrative/Incidental Pt remains in [facility] level of care. alert and orientedx4. Frisian speaking only. Was on insulin drip and transitioned to SQ lantus. Gap was closed and tolerated diet. Insulin drip was d/kalen at 0116 am this morning. Stable vital signs. NSR on monitor. . Patient Care team information Care Team Personnel Name: James HAILE, Erica Position: [facility] RN Member Role: Primary Care Nurse Name: Scott Greco MD Position: [facility] Outreach Member Role: PCP Address: Address: [address] [place] [id number]- Name: Tiff Weeks RN Position: [facility] ED RN W/OE and Tasks Member Role: Patient Care Provider Name: Candida Rossi DOn Position: [facility] Resident Member Role: ED Resident Address: Address: [address] [place] [id number]- Name: Ken Conley MD Position: [facility] ED Medicine MD Address: Address: [address] [place] [id number]- Name: Betty Brownlee Position: [facility] ED TA [facility] Member Role: Supervisor [employer] Care Team Related Persons Name: MARIA C WHITE Address: home SAME PT UM
[2022-10-28 03:26] LABS: Ethanol < 10 mg/dL
[2022-10-28] MEDS: Naloxone HCl Nasal 4 MG SPRAY NOSTRILALT (03:29)
[2022-10-28] MEDS: Sodium Bicarbonate 8.4% 50 MEQ/50 ML SYRINGE IVPUSH (03:29)
--- NOTE | 2022-10-28 03:31 | PC.NURSE ---
Pt change into hospital attire,medicated per Apr, Notified MIC Aleman.
[2022-10-28 03:38] LABS: Neutrophils Percent Manual 64 % (45-73)
[2022-10-28 03:40] LABS: Band Neutrophils Percent 20 % (3-5); Lymphocytes Absolute Manual 1.6 X10*3/uL (1.2-4.9); Lymphocytes Percent Manual 7 % (20-40); Metamyelocytes Absolute 0.2 X10*3/uL; Metamyelocytes Percent 1 %; Monocytes Absolute Manual 1.8 X10*3/uL (0.1-1.2); Monocytes Percent Manual 8 % (2-11); Neutrophils Absolute Manual 18.6 X10*3/uL (2.0-8.3)
[2022-10-28 03:41] LABS: Platelet Estimate NORMAL (NORMAL); Platelet Morphology Comment NORMAL; RBC Morphology NORMAL
[2022-10-28 03:47] LABS: Alanine Aminotransferase 30 U/L (0-40); Albumin Level 5.3 g/dL (3.5-5.0); Alkaline Phosphatase 244 U/L (39-117); Aspartate Amino Transferase 42 U/L (5-37); Bilirubin Total 0.2 mg/dL (0.0-1.0); Blood Urea Nitrogen 20 mg/dL (9-16); Carbon Dioxide < 5 mmol/L (22-29); Chloride 96 mmol/L (96-108); Creatinine Clr Calc Pharmacy 38.5; Estimated Glomerular Filt Rate 37; Glucose Random 626 mg/dL (60-115); Potassium 4.5 mmol/L (3.3-5.1); Sodium 128 mmol/L (135-145); Total Protein 9.6 g/dL (6.5-8.0)
[2022-10-28 03:57] LABS: Glucose, Whole Blood 511 mg/dL (60-115)
[2022-10-28] MEDS: Lactated Ringers 2,000 ML 999 ML IV (04:10)
--- NOTE | 2022-10-28 04:11 | P.HPCC_ITS ---
History of Present Illness Date of Service: 10/28/22 <MILIND Barba - Last Filed: 10/28/22 21:46> Attending physician on admission: Debi Shin <MILIND Barba - Last Filed: 10/28/22 21:46> Chief Complaint: DKA/CATHY <MILIND Barba - Last Filed: 10/28/22 21:46> HPI: ?32-year-old male with underlying history of type 1 diabetes who has been seen in this hospital in the past for hyperglycemia but not DKA, who has previous hemoglobin A1c 1 year ago was 14, his history of cocaine use disorder, had presented today to the emergency room after being found by the police department in the hallway of an apartment building.? Patient was transported via EMS who administered Narcan on the field without much improvement, Narcan was repeated in the emergency room without any improvement.? Patient appeared to be somewhat lethargic and being a poor historian, his ER workup reveal a white count 62960, H&H of 18 and 54.9 respectively, platelet of 413, 20% bandemia.? Sodium 128, potassium 4.5, chloride 96, carbon dioxide less than 5, BUN 20, creatinine 2.07, random glucose 626, alk-phos 244, protein 9.6, albumin 5.3, beta hydroxybutyrate acid 14.1; venous blood gas shows pH of 6.6 8, pCO2 of 15, PO2 of 83, HC03 of 2, PO2 93. ? Patient was given IV fluids x2 L, started on insulin drip at 5 units/hour and we were called for admission.? No images have been done, patient appears to be having some diarrhea, unable to answer my questions at this point stating that his whole body hurts however he is not able to answer further complex questions in regards to his symptoms. At this point my concern is this patient's breathing pattern, low pH, a white count and bandemia along with a possible occult infection leading to the DKA, images will be ordered and the patient will be transferred to the ICU as well as possible for further care. ? ROS:? Unable to obtain ? Past Medical History: ?As above ? Past Surgical History: none ? Family history: ?Noncontributory ? Social History:? Lives at home, no history of tobacco or alcohol.? He does have a chronic history of cocaine use. ? CODE STATUS: FULL CODE ? Allergies: NKDA ? Home Medications: See Med Rec ? Sepsis PHYSICAL EXAM done 0430 am : VS: ?163 /93; 90, 25, 99% room air General:? Alert able to talk, somewhat confused, mumbles, moans and groans.? Patient appears to be in moderate distress without accessory muscle use age however he does have Kussmaul respirations and rigors. ? Skin:? Intact, no lesions, edema, erythema, clubbing or cyanosis.? No ulcers. HEENT:? Head is normocephalic, atraumatic, pupils equal round reactive to light accommodation bilaterally.? Extraocular movements appear intact.? Buccal mucosa is pasty dry. ?Neck is supple without lymphadenopathy. Cardiac:? Clear S1-S2, no murmurs rubs or gallops. Pulmonary:? Diminished lung sounds bilaterally with minor coarseness at the right base with a subtle rhonchi, no crackles or rales, wheezes. Abdomen:? Protuberant, positive bowel sounds in all 4 quadrants.? Soft, nonten mita, no rebound or guarding.? Musculoskeletal:? Moving all 4 extremities upon request a major joints, there is no crepitus or tenderness.? The strength is 5/5 bilaterally and throughout all 4 extremities.? There is no leg edema , no calf tenderness , no leg asymmetry. Neurologic:? As above, cranial nerves 2-12 are grossly intact.? No focal deficits noted. Vascular:? 2+ pulses upper and lower extremities distally. ?Less than 2nd capillary refill of the finger and toes bilaterally. ? SIGNIFICANT LABORATORY DATA:? As above ? REVIEW OF IMAGES: CXR IMPRESSION: Increased interstitial markings/atelectatic change at the lung bases. There is no focal lung consolidation or evidence for significant pleural effusion. ? EKG REVIEW: ?To my view this sinus tachycardia ventricular rate 103 beats per minute.? There is no ST elevations, no ST depressions.? QT 346 MS.? Disease similar to prior study from 2021 although T-wave inversions in the inferior leads are no longer present. ? ASSESSMENT : 1. DKA in a type 1 diabetic 2. Acute early sepsis in the setting of bilateral pneumonia ? aspiratin 3. Acute kidney injury due to volume depletion / nephrotoxins (ibuprofen) 4. Hemoconcentration 5. Pseudo hyponatremia due to DKA 6. Severe metabolic acidosis due to DKA 7. Underlying in right greater than left community-acquired pneumonia 8. History of cocaine abuse 9. Severe dehydration 10. Illness related hypothermia of 90.3 F rectally 11. Acute mental status changes likely due to hypothermia, rule out central organic causes 12. Urinary retention with significantly distended bladder ? PLAN OF CARE: Patient will be admitted to the ICU, no IV insulin bolus was given, 1 ordered, will continue with insulin drip but will increase to 10 units an hour, LR at 200 cc an hour, check blood sugar every 1 hour, chemistries every 4 hours, for now will administered 2 amps of sodium bicarb every 1 hour x2 and if necessary place him on bicarb drip, blood cultures x2, lactic acid ordered, will start him on Rocephin and Zithromax as I do believe he has a bilateral pneumonia.? Spencer catheter will be placed to manage I's and O's, I had the ER nurse check his temperature and is 90.3 rectally, Dirk Hugger ordered. ? I have added a hemoglobin A1c, will order a urine tox screen, will follow along for the formal reading of head CT which to my impression shows no acute pat hology, abdomen pelvis CT shows a large distended bladder along with air-fluid levels but I do not see dilated loops to represent a obstruction, will request placement of a Spencer catheter; radiology reading pending ? Even though his presentation is mostly consistent with DKA, I do think he has signs and symptoms of an underlying infection including his white count which to me is not only reactive but rather infectious, end-organ damage, tachypnea and a suspected infection of the right lower lobe. ?He did receive 2 L of IV fluid bolus in the ER, will continue with maintenance fluids. IV bicarbonate can be given in the formal pushes, and sterile water 4 I estimate that his total bicarbonate deficit is 450+ mEqs, however this will improve as we corrected DKA but perhaps no quickly enough given the underlying infection. ? GI PROPHYLAXIS: ?IV ppi DVT PROPHYLAXIS: ?Heparin subQ ? Critical care time used for critical evaluation of this patient, diagnosis, treatment and coordination of care, review her records and documentation TOTAL CRITICAL CARE TIME??120 MIN . discussion and coordination with consultants, completely separate from any procedures performed. Patient's care was discussed in detail with Dr. De Jesus? she is aware of all the above as well as the plan of care for this patient. <MILIND Barba - Last Filed: 10/28/22 21:46> [facility] Social History Social History: Social History Household Members: None Housing: Apartment Do you presently have visiting nurse or other home services: No Patient Tobacco Use Status: Current everyday Tobacco user Tobacco use type: Cigarette Smoked in Last 30 Days: Yes e-Cigarette/Vaping Use: Never Used Patient Interested in Nicotine Replacement: No Patient Given Instructions on How to Stop Smoking: No (pt refused) Second Hand Smoke Exposure: No Use of substances other than those prescribed or required for medical reasons: Yes Substance Use Type: Crack/Cocaine Last Used Substance: Just Prior to Admission Currently Displaying Signs/Symptoms of Drug Intoxication Withdrawal: Yes Any prior treatment program specific to substance use: No Have you been hit, kicked, punched, or otherwise hurt by someone within the past year? If so, by whom?: No Do you feel safe in your current relationship?: Yes Is there a partner from a previous relationship who is making you feel unsafe now?: No Are you made to feel afraid or neglected: No Advance Directives: No Advance Directives Information Provided: Yes Do you have thoughts of harming others: None Do you have a plan to hurt others: No Plan Recently lost weight without trying: No How much weight loss: Not applicable Eating poorly because of decreased appetite: No Nutrition screen score: 0 Nutrition Risks: No Nutritional Risk Poor oral hygiene: No service: No <MILIND Barba - Last Filed: 10/28/22 21:46> Meds Allergies/Adverse reactions: Allergies Allergy/AdvReac Type Severity Reaction Status Date / Time Penicillins Allergy Rash Verified 10/28/22 07:38 <MILIND Barba - Last Filed: 10/28/22 21:46> Active Medications: Current Medications Dextrose (Dextrose 50 % 25 Gm/50 Ml Syringe) 25 gm IVPUSH Q30M PRN PRN Reason: BG < 70 Heparin Sodium (Porcine) (Heparin Sodium,Porcine 5,000 Unit/Ml Vial) 5,000 unit SUBCUT Q12H CIRILO Sodium Chloride (Ns) 2,000 mls @ 999 mls/hr IV .Q2H1M CIRILO Stop: 10/28/22 05:00 Last Admin: 10/28/22 02:59 Dose: 999 mls/hr Lactated Ringer's (Lr) 2,000 mls @ 999 mls/hr IV .Q2H1M CIRILO Stop: 10/28/22 05:30 Last Admin: 10/28/22 04:10 Dose: 999 mls/hr Insulin Human Regular (Myxredlin) 100 unit in 100 mls @ 5 mls/hr IVCONT .Q20H CIRILO; Protocol Lactated Ringer's (Lr) 1,000 mls @ 200 mls/hr IVCONT .Q5H CIRILO Sodium Bicarbonate (Sodium Bicarbonate 8.4% 50 Meq/50 Ml Syringe) 100 meq IVPUSH ONCE ONE Stop: 10/28/22 04:11 <MILIND Barba - Last Filed: 10/28/22 21:46> Home medications: Home Medications Medication Instructions Recorded Confirmed Last Taken Type insulin glargine 100 unit/mL (3 18 unit subcut DAILY 10/28/22 10/28/22 Unknown History mL) subcutaneous pen (Lantus Solostar U-100 Insulin) insulin lispro 100 unit/mL 1 sliding scale dose subcut 10/28/22 10/28/22 Unknown History subcutaneous pen USEASDIRECTD <MILIND Barba - Last Filed: 10/28/22 21:46> Physical Exam Vital Signs: Vital Signs: Last Vital Signs Resp 25 H 10/28/22 02:51 BP 163/93 H 10/28/22 02:51 Pulse Ox 99 10/28/22 02:51 O2 Del Method Room Air 10/28/22 02:51 BMI result Body Mass Index 18.4 <MILIND Barba - Last Filed: 10/28/22 21:46> Results Labs CBC and Chem 7: 10/28/22 03:03 10/28/22 03:03 <MILIND Barba - Last Filed: 10/28/22 21:46> Labs: Laboratory Results - last 24 hr 10/28/22 10/28/22 10/28/22 03:03 03:03 03:03 MCV 91.3 MCH 30.1 MCHC 33.0 RDW 12.5 Plt Count 413 H D MPV 10.5 Immature Gran % (Auto) Cancelled Neut % (Auto) Cancelled Lymph % (Auto) Cancelled [place] % (Auto) Cancelled Eos % (Auto) Cancelled Baso % (Auto) Cancelled Lymph # (Auto) Cancelled [place] # (Auto) Cancelled Eos # (Auto) Cancelled Baso # (Auto) Cancelled Abs Immat Gran (auto) Cancelled Absolute Neuts (auto) Cancelled Absolute Nucleated RBC 0.000 Nucleated RBC % (auto) 0.0 Neutrophils % (Manual) 64 Band Neutrophils % 20 H Lymphocytes % (Manual) 7 L Monocytes % (Manual) 8 Metamyelocytes % 1 Abs Neuts (Manual) 18.6 H Lymphocytes # (Manual) 1.6 Monocytes # (Manual) 1.8 H Metamyelocytes # 0.2 Platelet Estimate NORMAL Plt Morphology Comment NORMAL RBC Morphology NORMAL VBG pH VBG pCO2 VBG pO2 VBG HCO3 VBG O2 Saturation VBG Base Excess Anion Gap TNP Estim Creat Clear Calc 38.5 Estimated GFR 37 POC Glucose 545 H* Random Glucose 626 H* Calcium 10.0 Total Bilirubin 0.2 AST 42 H ALT 30 Alkaline Phosphatase 244 H Total Protein 9.6 H Albumin 5.3 H Beta-Hydroxybutyrate 14.10 H Ethyl Alcohol 10/28/22 10/28/22 10/28/22 03:06 03:11 03:52 MCV MCH MCHC RDW Plt Count MPV Immature Gran % (Auto) Neut % (Auto) Lymph % (Auto) [place] % (Auto) Eos % (Auto) Baso % (Auto) Lymph # (Auto) [place] # (Auto) Eos # (Auto) Baso # (Auto) Abs Immat Gran (auto) Absolute Neuts (auto) Absolute Nucleated RBC Nucleated RBC % (auto) Neutrophils % (Manual) Band Neutrophils % Lymphocytes % (Manual) Monocytes % (Manual) Metamyelocytes % Abs Neuts (Manual) Lymphocytes # (Manual) Monocytes # (Manual) Metamyelocytes # Platelet Estimate Plt Morphology Comment RBC Morphology VBG pH 6.68 L* VBG pCO2 15 VBG pO2 83 VBG HCO3 2 L VBG O2 Saturation 93.0 VBG Base Excess -34.5 Anion Gap Estim Creat Clear Calc Estimated GFR POC Glucose 511 H* Random Glucose Calcium Total Bilirubin AST ALT Alkaline Phosphatase Total Protein Albumin Beta-Hydroxybutyrate Ethyl Alcohol < 10 <Enrique Matt, PA - Last Filed: 10/28/22 21:46> Assessment and Plan (1) DKA (diabetic ketoacidosis): Status: Acute <MILIND Barba - Last Filed: 10/28/22 21:46> (2) CATHY (acute kidney injury): Status: Acute <MILIND Barba - Last Filed: 10/28/22 21:46> (3) Cocaine use disorder: Status: Acute <MILIND Barba - Last Filed: 10/28/22 21:46> Attending Attestation: Patient is a 32 Y M with DM, presenting with obtundation, found to be in DKA; initial fluid resuscitation initiated in ED; upon evaluation, patient with lethargy, hyperpnea, c/f profound DKA; work-up sig nificant for leukocytosis w/ bandemia, in the setting of unclear history of present illness, broad infectious work-up initiated, revealing of pneumonitis vs pneumonia, likely aspiration, started on ceftriaxone/azithromycin;, as well as CATHY; moreover, patient given insulin bolus followed by insulin gtt with potassium replacement, with slowly improving laboratories and clinical exam; plan to continue insulin gtt until resolution of DKA <Debi Shin MD - Last Filed: 10/28/22 10:18> Time Spent With Patient Time: Total time managing care of this patient today ____ minutes. <MILIND Barba - Last Filed: 10/28/22 21:46>
[2022-10-28] MEDS: Insulin Regular/NS 100 UNIT/100 ML PLAST..BAG IVCONT (04:15)
[2022-10-28] MEDS: Lactated Ringers 1,000 ML 200 ML IVCONT ×2 (04:28→08:55)
[2022-10-28] MEDS: Sodium Bicarbonate 8.4% 50 MEQ/50 ML SYRINGE 100 MEQ IVPUSH ×3 (04:31→07:12)
[2022-10-28 04:45] LABS: Venous Blood Gas Refer to POC result
[2022-10-28 04:47] LABS: VBG Base Excess -34.6 mmol/L; VBG HCO3 1 mmol/L (22-26); VBG pCO2 12 mmHg; VBG pH 6.69 (7.32-7.43); VBG pO2 73 mmHg
--- NOTE | 2022-10-28 04:50 | PC.NURSE ---
pt has critical care of 6.68. Enrique orona and MIC Aleman.
[2022-10-28] MEDS: Insulin Regular, Human 100 UNIT/ML 3 ML VIAL 10 UNIT IVPUSH (05:15)
[2022-10-28] MEDS: HYDROmorphone HCl 1 MG/ML SYRINGE IVPUSH (05:21)
[2022-10-28 05:40] LABS: Glucose, Whole Blood 493 mg/dL (60-115)
--- NOTE | 2022-10-28 05:53 | PC.NURSE ---
Medications administered as per APR. rectal temp 90.2, bearhugger applied. POC 496. Provider made aware. Nurse to nurse report given to Betty JALOUSIES INSTALLER
[2022-10-28 05:54] LABS: Appearance Urine Clear; Color Urine Yellow; Glucose Urine UA >=1000 mg/dL (Negative); Leukocyte Esterase Urine Negative (Negative); Nitrite Urine Negative (Negative); Specific Gravity - Urine 1.015 (1.005-1.025); UMIC TRIGGER UACC YES; Urine Blood Small (1+) (Negative); Urine Ketones >=160 mg/dL (Negative); Urine Protein 30 (1+) mg/dL (Neg-Trace)
[2022-10-28 06:01] LABS: Amphetamine Screen Urine Not Detected (Not Detect); Barbiturates, Urine Not Detected (Not Detect); Benzodiazepines Screen Urine Not Detected (Not Detect); Cannabinoid Screen Urine Not Detected (Not Detect); Cocaine Screen Urine POSITIVE (Not Detect); Fentanyl, urine Not Detected (Not Detect); Opiate Screen Urine Not Detected (Not Detect); Phencyclidine Screen Urine Not Detected (Not Detect)
--- NOTE | 2022-10-28 06:02 | PC.NURSE ---
POC 493. Glucose drop of 52. Maintaining infusion at same rate. recheck POC in 1 hour.
[2022-10-28 06:08] LABS: MANUAL DIFF FLAG NO
[2022-10-28 06:09] LABS: Bacteria Urine None Seen (None Seen); RBC Urine 0-2 /HPF (0-2); Squamous Epithelial Cell Urine 0-2 /HPF (0-2); WBC Urine 0-5 /HPF (0-5)
[2022-10-28 06:14] LABS: Basophils Absolute Auto 0.1 X10*3/uL (0.0-0.2); Basophils Percent Auto 0.6 % (0-2); Eosinophils Percent Auto 0.1 % (0-4); Hematocrit 45.2 % (42.0-52.0); Hemoglobin 15.3 g/dl (14.0-18.0); Imm Gran Abs Auto 0.33 X10*3/uL (0.00-0.03); Imm Gran Pct Auto 1.8 % (0.0-0.4); Lymphocytes Absolute Auto 1.2 X10*3/uL (1.2-4.9); Lymphocytes Percent Auto 6.3 % (20-40); Mean Corpuscular HGB Conc 33.8 g/dl (31.0-36.0); Mean Corpuscular Hemoglobin 30.4 pg (27.0-33.0); Mean Corpuscular Volume 89.9 fL (80.0-98.0); Mean Platelet Volume 10.5 fL (9.4-12.4); Monocytes Absolute Auto 1.1 X10*3/uL (0.1-1.2); Monocytes Percent Auto 5.7 % (2-11); Neutrophils Absolute Auto 15.9 x10*3/uL (2.0-8.3); Neutrophils Percent Auto 85.5 % (45-73); Platelet Count 296 X10*3/uL (160-400); Red Blood Count 5.03 X10*6/uL (4.60-5.80); Red Cell Distribution Width 12.3 % (11.0-16.0); White Blood Count 18.6 X10*3/uL (4.8-10.8)
[2022-10-28 06:16] LABS: VBG Base Excess -29.3 mmol/L; VBG HCO3 2 mmol/L (22-26); VBG pCO2 10 mmHg; VBG pH 6.89 (7.32-7.43); VBG pO2 88 mmHg
[2022-10-28 06:19] LABS: Venous Blood Gas Refer to POC result
[2022-10-28 06:20] LABS: Glucose, Whole Blood 364 mg/dL (60-115)
[2022-10-28 06:30] LABS: Alanine Aminotransferase 23 U/L (0-40); Albumin Level 3.7 g/dL (3.5-5.0); Alkaline Phosphatase 159 U/L (39-117); Aspartate Amino Transferase 44 U/L (5-37); Bilirubin Total 0.2 mg/dL (0.0-1.0); Blood Urea Nitrogen 17 mg/dL (9-16); Calcium 8.2 mg/dL (8.4-10.2); Carbon Dioxide < 5 mmol/L (22-29); Chloride 108 mmol/L (96-108); Creatinine Clr Calc Pharmacy 60.4; Estimated Glomerular Filt Rate > 60; Glucose Random 427 mg/dL (60-115); Potassium 3.5 mmol/L (3.3-5.1); Sodium 136 mmol/L (135-145); Total Protein 6.8 g/dL (6.5-8.0)
[2022-10-28 06:30] LABS: Lactic Acid 2.7 mmol/L (0.5-2.0)
[2022-10-28 06:37] LABS: Glucose, Whole Blood 358 mg/dL (60-115)
[2022-10-28] MEDS: cefTRIAXone sodium 1 GM in 0.9 % Sodium Chloride 50 ML IV (06:38)
[2022-10-28] MEDS: Azithromycin 500 MG in 0.9 % Sodium Chloride 250 ML 125 MG IV (06:38)
[2022-10-28] MEDS: Potassium Chloride ER 20 MEQ TAB.ER.PRT 40 MEQ PO (07:03)
[2022-10-28 07:05] LABS: Glucose, Whole Blood 379 mg/dL (60-115)
[2022-10-28 07:09] LABS: Hemoglobin A1c % > 14.0 % (<6.0)
[2022-10-28] MEDS: Sodium Bicarbonate 8.4% 50 MEQ/50 ML VIAL 100 MEQ IVPUSH (07:11)
--- NOTE | 2022-10-28 07:20 | PC.NURSE ---
Pt admitted to ICU at approx 0600. Pt alert, lethargic but responsive to verbal stimuli, follows commands, STEVEN. Temp 89.9 via core bladder probe, enrique hugger applied. NSR on tele, HR 90s. BP WNL. SpO2 > 92% via 2L NC, tachypneic but denies SOB. Spencer placed. Skin intact. Insulin gtt and IVF running per APR. Report given to oncoming RN.
[2022-10-28 08:03] LABS: Glucose, Whole Blood 355 mg/dL (60-115)
[2022-10-28] MEDS: Heparin Sodium,Porcine 5,000 UNIT/ML VIAL 5000 UNIT SUBCUT ×2 (08:15→20:58)
[2022-10-28 08:18] LABS: Reflex Lactate? Lactic Acid Added
--- NOTE | 2022-10-28 08:47 | PHA.MEDREC ---
Pharmacy Consult ? Medication Reconciliation Pharmacy has completed the medication reconciliation. pATIENT ENDORSED LANTUS AND ANOTHER INSULIN BUT DID NOT KNOW THE NAME. PT WAS CONFUSED. CALLED [facility] AT HIS REQUEST. ARI NOT PICKED UP SINCE 11/14. KOFITUS MORE RECENT ESTER
[2022-10-28 09:02] LABS: Glucose, Whole Blood 287 mg/dL (60-115)
[2022-10-28 09:10] LABS: ~Lactic Acid-LAB USE ONLY 2.3 mmol/L (0.5-2.0)
[2022-10-28 10:09] LABS: Glucose, Whole Blood 203 mg/dL (60-115)
[2022-10-28 10:48] LABS: Reflex Lactate? 2 Y
[2022-10-28 10:53] LABS: VBG Base Excess -17.7 mmol/L; VBG HCO3 7 mmol/L (22-26); VBG pCO2 16 mmHg; VBG pH 7.23 (7.32-7.43); VBG pO2 40 mmHg
[2022-10-28 11:07] LABS: Venous Blood Gas Refer to POC result
[2022-10-28 11:08] LABS: Glucose, Whole Blood 174 mg/dL (60-115)
[2022-10-28 11:17] LABS: Alanine Aminotransferase 27 U/L (0-40); Albumin Level 3.4 g/dL (3.5-5.0); Alkaline Phosphatase 112 U/L (39-117); Anion Gap 28 (12-20); Aspartate Amino Transferase 36 U/L (5-37); Bilirubin Total 0.3 mg/dL (0.0-1.0); Blood Urea Nitrogen 14 mg/dL (9-16); Carbon Dioxide 8 mmol/L (22-29); Chloride 109 mmol/L (96-108); Estimated Glomerular Filt Rate > 60; Glucose Random 193 mg/dL (60-115); Potassium 2.9 mmol/L (3.3-5.1); Sodium 142 mmol/L (135-145); Total Protein 6.4 g/dL (6.5-8.0)
[2022-10-28] MEDS: Dextrose 5 % and Lactated Ring 1,000 ML 150 ML IVCONT ×2 (11:30→18:20)
[2022-10-28 11:36] LABS: ~Lactic Acid-LAB USE ONLY 1.9 mmol/L (0.5-2.0)
[2022-10-28] MEDS: Potassium Chloride/H20 10 MEQ/100 ML PIGGYBACK 100 MEQ IV ×6 (11:40→18:25)
[2022-10-28] MEDS: Potassium Chloride ER 20 MEQ TAB.ER.PRT PO ×2 (11:46→11:47)
[2022-10-28 12:03] LABS: Glucose, Whole Blood 148 mg/dL (60-115)
[2022-10-28 13:03] LABS: Glucose, Whole Blood 173 mg/dL (60-115)
[2022-10-28 14:06] LABS: Glucose, Whole Blood 176 mg/dL (60-115)
[2022-10-28 15:05] LABS: Glucose, Whole Blood 192 mg/dL (60-115)
[2022-10-28 15:27] LABS: Anion Gap 18 (12-20); Blood Urea Nitrogen 11 mg/dL (9-16); Calcium 8.3 mg/dL (8.4-10.2); Carbon Dioxide 13 mmol/L (22-29); Chloride 110 mmol/L (96-108); Creatinine Clr Calc Pharmacy 85.8; Estimated Glomerular Filt Rate > 60; Glucose Random 177 mg/dL (60-115); Potassium 3.2 mmol/L (3.3-5.1); Sodium 138 mmol/L (135-145)
--- NOTE | 2022-10-28 15:50 | MHC.CM.PN ---
Pt presented to ICU w/DKA: found in hallway by PD. + tox screen: Attempted to meet w/pt to review d/c planning needs: pt sleepy and somewhat dismissive of CM presence. States he has no care needs or barriers - inquired on DM management as A1C is 14. Pt states insulin compliance: pharmacy states pt fills LT insulin but not consistently getting short acting insulin. Pt states he has transportation and offers no more conversation. CM to follow for any d/c needs.
[2022-10-28 15:58] LABS: Glucose, Whole Blood 187 mg/dL (60-115)
[2022-10-28 17:07] LABS: Glucose, Whole Blood 178 mg/dL (60-115)
[2022-10-28] MEDS: Insulin Regular/NS 100 UNIT/100 ML PLAST..BAG 6.5 UNIT IVCONT (17:09)
[2022-10-28 18:02] LABS: Glucose, Whole Blood 216 mg/dL (60-115)
[2022-10-28 19:07] LABS: Glucose, Whole Blood 190 mg/dL (60-115)
[2022-10-28 20:04] LABS: Glucose, Whole Blood 188 mg/dL (60-115)
[2022-10-28] MEDS: Insulin Glargine,Hum.rec.anlog 100 UNIT/ML 10 ML VIAL 15 UNIT SUBCUT (20:57)
[2022-10-28 21:03] LABS: Glucose, Whole Blood 142 mg/dL (60-115)
[2022-10-28 21:09] LABS: Anion Gap 9 (12-20); Blood Urea Nitrogen 10 mg/dL (9-16); Calcium 8.5 mg/dL (8.4-10.2); Carbon Dioxide 21 mmol/L (22-29); Chloride 110 mmol/L (96-108); Creatinine Clr Calc Pharmacy 99.7; Estimated Glomerular Filt Rate > 60; Glucose Random 158 mg/dL (60-115); Potassium 3.1 mmol/L (3.3-5.1); Sodium 137 mmol/L (135-145)
--- NOTE | 2022-10-28 21:46 | PM.CCN ---
Critical Care Event Note Summary Date of Service: 10/28/22 Code activated: Yes Narrative: This case had a high probability of a clinically significant, sudden, or life threatening deterioration of this patient's condition which required my full and direct attention, intervention and personal management. Critical Care Time (minutes): 30 Comment: CLINICAL UPDATE 9 30 P.M. ON 10/28/2022 Patient was admitted overnight with EKG in the setting of a community versus aspiration pneumonia and early sepsis, who has a history of type 1 diabetes and is noncompliant, cocaine user.? The patient was treated appropriately with IV fluids, insulin drip, bicarb, antibiotics, electrolyte replacement among others, is now doing much better, his anion gap 1st closed at 15:00 this afternoon, insulin was continued and subsequently recheck labs were ordered however due to lab error we could not verify that the anion gap remained closed until now.? His current anion gap is 9, his potassium is 3.1, his blood sugars are below 150. At this point, the patient remains hemodynamically stable, D5 have IV fluids have been discontinued, insulin drip has been discontinued, the patient received 15 units of Lantus subQ and was started on an insulin S slightly in a scale along with diabetic 2200 calorie diet. I did have a lengthy discussion with the patient about the importance of medication compliance, he stated that he had ran out of medication over the weekend and did not know that he could call his primary care office to request a refill. Potassium replacement was ordered and given orally, at this point the patient does not need any further ICU care, the case was discussed in detail with (hospitalist) and the patient will be transferred to [facility]. Total critical care time with this patient 30 minutes.
[2022-10-28] MEDS: Potassium Chloride Packet 20 MEQ PACKET 40 MEQ PO (22:20)
--- NOTE | 2022-10-29 01:27 | PC.NURSE ---
ASSUMED CARE OF PT AT 1900. PT AWAKE, A&OX3. DENIES PAIN, N OR V. NPO WITH JUST SIPS OF H20/ICE CHIPS. REMAINED ON INSULIN DRIP PER PROTOCOL BUT PER LABS DRAWN AT 2050, ANION GAP HAS CLOSED AND PROVIDER MAG GARCIA PA-C ORDERED LANTUS INSULIN AND TO SHUT OFF INSULIN DRIP. D5LR ALSO D/C'D. THIS OCCURED AROUND 10PM. PT WAS STARTED ON A DIABETIC DIET AND ATE A TUNA SANDWICH, DIABETIC PUDDING AND A CHEESE STICK. K+ WAS 3.1 AND PT WAS GIVEN KCL 40 MEQ PO. WATSON CATH WAS REMOVED AT 2230. DTV #1 AT 0430. TRANSFER ORDERS FOR MED SURG GIVEN. PT TO BE TRANSFERRED WHEN BED AVAILABLE. HE IS AWARE OF PLAN OF CARE.
--- NOTE | 2022-10-29 01:34 | PC.NURSE ---
ASSUMED CARE OF PT AT 1900. PT ON AC/VC+ VENT SETTINGS. FIO2 30%. NO ACUTE RESP DISTRESS. O2 SAT MID 90'S. FIO2 DECREASED TO 25% PER PROVIDER MAG AT 0000. PROPOFOL AT 30 MCG/KG/MIN SHUT OFF AT 2300 BY PROVIDER. FENTANYL 50 MCG IVP GIVEN AT THAT TIME. PT STARTED TO WAKE UP AT ABOUT 0030 COUGHING AND OPENING HER EYES BUT NOT FOLLOWING COMMANDS. REMAINS OFF SEDATION AT THIS TIME, 0130. ETCO2 28-30. BP STABLE, 119/68. MONITOR SHOWS SR-ST, 90'S-108. NO VENT ECTOPY SEEN UNTIL NOW WITH A SHORT RUN OF VTACH 11 BEATS. PROVIDER AWARE OF VTACH. WILL CONTINUE TO MONITOR RHYTHM. U/O GOOD. OGT WAS TO IWS BUT SUCTION DISCONNECTED AND TUBE FLUSHED. PT WAS STARTED ON COREG.
[2022-10-29] MEDS: Azithromycin 500 MG in 0.9 % Sodium Chloride 250 ML 125 MG IV (04:00)
[2022-10-29 04:50] VITALS: BMI 18.6
--- NOTE | 2022-10-29 05:00 | PC.NURSE ---
pt oob to bedside commode with much encouragement. voided 400 ml clear yellow urine. mod formed harris bm noted. pt washed his face and hands and brushed his teeth. he is aware he will be transferring to another room 479. report given to kylie salas. pt prepared for transfer. no pt belongings here. 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
[2022-10-29] MEDS: cefTRIAXone sodium 1 GM in 0.9 % Sodium Chloride 50 ML IV (05:09)
[2022-10-29 06:00] VITALS: BP 129/79; PULSE 86; RESP 18; TEMP 36.9; O2SAT 97
[2022-10-29 07:35] LABS: Glucose, Whole Blood 266 mg/dL (60-115)
[2022-10-29 07:44] VITALS: BP 112/74; PULSE 96; RESP 15; TEMP 37.1; O2SAT 97
[2022-10-29] MEDS: Heparin Sodium,Porcine 5,000 UNIT/ML VIAL 5000 UNIT SUBCUT ×2 (07:58→20:13)
[2022-10-29] MEDS: Insulin Lispro 100 UNIT/ML 3 ML VIAL SUBCUT ×7 (07:58→20:14)
[2022-10-29 09:22] LABS: Anion Gap 11 (12-20); Blood Urea Nitrogen 10 mg/dL (9-16); Calcium 9.1 mg/dL (8.4-10.2); Carbon Dioxide 19 mmol/L (22-29); Chloride 107 mmol/L (96-108); Creatinine Clr Calc Pharmacy 103.8; Estimated Glomerular Filt Rate > 60; Glucose Random 419 mg/dL (60-115); Magnesium 1.5 mg/dL (1.6-2.6); Potassium 3.1 mmol/L (3.3-5.1); Sodium 134 mmol/L (135-145)
[2022-10-29 09:28] LABS: Glucose, Whole Blood 384 mg/dL (60-115)
[2022-10-29] MEDS: Potassium Chloride ER 20 MEQ TAB.ER.PRT 40 MEQ PO ×2 (09:36→16:41)
[2022-10-29] MEDS: Magnesium Oxide 400 MG TABLET PO ×2 (09:36→16:41)
[2022-10-29] MEDS: Magnesium Sulfate/H2O 2 GM/50 ML PIGGYBACK IV (09:43)
[2022-10-29 11:20] LABS: Glucose, Whole Blood 308 mg/dL (60-115)
--- NOTE | 2022-10-29 13:58 | MHC.CLN ---
F/U PT IS UNDER WT FOR HT WITH BMI BORDERLINE LOW AT 18.4 PT WITH HX COCAINE ABUSE AND MAY BE CONTRIBUTOR TO LOW BODY WT DIET ADVANCED TO 2200DM-RECOMMEND 1800DM DIET PT WITH A1C 14% UPON ADMISSION; PT NOT RECEPTIVE TO DIET TEACHING AT THIS TIME. 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
[2022-10-29 14:00] VITALS: BP 131/71; PULSE 105; RESP 14; TEMP 36.9; O2SAT 95
[2022-10-29 14:19] LABS: Anion Gap 12 (12-20); Blood Urea Nitrogen 9 mg/dL (9-16); Calcium 9.2 mg/dL (8.4-10.2); Carbon Dioxide 20 mmol/L (22-29); Chloride 104 mmol/L (96-108); Estimated Glomerular Filt Rate > 60; Glucose Random 498 mg/dL (60-115); Potassium 3.2 mmol/L (3.3-5.1); Sodium 133 mmol/L (135-145)
--- NOTE | 2022-10-29 14:37 | HO.PM.IMPN ---
Subjective Subjective Date of Service: 10/29/22 Review of Systems Follow up DKA feeling better no nausea, vomiting or diarrhea Physical Exam Vital Signs: Vital Signs: Last Vital Signs Temp 98.4 F 10/29/22 14:00 Pulse 105 H 10/29/22 14:00 Resp 14 10/29/22 14:00 BP 131/71 10/29/22 14:00 Pulse Ox 95 10/29/22 14:00 O2 Del Method Room Air 10/29/22 14:00 O2 Flow Rate 2 10/28/22 09:00 BMI result Body Mass Index 18.6 Appearing in no acute distress lung sounds are clear to auscultation heart regular rate rhythm, clear S1, S2 positive bowel sounds, abdomen is soft, nontender neuro patient is alert x3, no focal deficits Objective Data Active Medications Dextrose (Dextrose 50 % 25 Gm/50 Ml Syringe) 25 gm IVPUSH Q30M PRN PRN Reason: BG < 70 Glucose (Glucose Gel 15 Gm Gel..Gram.) 15 gm PO Q15M PRN; Protocol PRN Reason: per Hypoglycemia Standing Ord. Heparin Sodium (Porcine) (Heparin Sodium,Porcine 5,000 Unit/Ml Vial) 5,000 unit SUBCUT Q12H [facility] Last Admin: 10/29/22 07:58 Dose: 5,000 unit Documented By: JEFFRY Ceftriaxone Sodium 1 gm/ (Sodium Chloride) 50 mls @ 100 mls/hr IV Q24H [facility] Last Admin: 10/29/22 05:09 Dose: 100 mls/hr Documented By: CRISTIAN Azithromycin 500 mg/ Sodium (Chloride) 250 mls @ 125 mls/hr IV Q24H [facility] Last Admin: 10/29/22 04:00 Dose: 125 mls/hr Documented By: CRISTIAN Insulin Glargine (Insulin Glargine,Hum.Rec.Anlog 100 Unit/Ml 10 Ml Vial) 15 unit SUBCUT BEDTIME [facility] Last Admin: 10/28/22 20:57 Dose: 15 unit Documented By: CRISTIAN Insulin Human Lispro (Insulin Lispro 100 Unit/Ml 3 Ml Vial) 0 unit SUBCUT QIDACHS [facility]; Protocol Last Admin: 10/29/22 11:54 Dose: 8 unit Documented By: JEFFRY Insulin Human Lispro (Insulin Lispro 100 Unit/Ml 3 Ml Vial) 5 unit SUBCUT QIDACHS [facility] Labs 10/28/22 06:02 10/29/22 13:54 Labs: Laboratory Results - last 24 hr 10/28/22 10/28/22 10/28/22 14:34 15:01 15:55 Anion Gap 18 Estim Creat Clear Calc 85.8 Estimated GFR > 60 POC Glucose 192 H 187 H Random Glucose 177 H Calcium 8.3 L Magnesium 10/28/22 10/28/22 10/28/22 17:03 17:57 18:45 Anion Gap Cancelled Estim Creat Clear Calc Cancelled Estimated GFR Cancelled POC Glucose 178 H 216 H Random Glucose Cancelled Calcium Cancelled Magnesium 10/28/22 10/28/22 10/28/22 19:02 20:01 20:51 Anion Gap 9 L Estim Creat Clear Calc 99.7 Estimated GFR > 60 POC Glucose 190 H 188 H Random Glucose 158 H Calcium 8.5 Magnesium 10/28/22 10/29/22 10/29/22 21:00 07:27 08:56 Anion Gap 11 L Estim Creat Clear Calc 103.8 Estimated GFR > 60 POC Glucose 142 H 266 H Random Glucose 419 H* Calcium 9.1 D Magnesium 1.5 L 10/29/22 10/29/22 10/29/22 09:24 11:16 13:54 Anion Gap 12 Estim Creat Clear Calc 91.0 Estimated GFR > 60 POC Glucose 384 H* 308 H Random Glucose 498 H* Calcium 9.2 Magnesium Microbiology Microbiology Results: Microbiology 10/28/22 06:23 Blood Culture - Preliminary Blood - Venous No growth after 24 hours. 10/28/22 06:03 Blood Culture - Preliminary Blood - Venous No growth after 24 hours. Assessment and Plan (1) DKA (diabetic ketoacidosis): Status: Acute Plan 32-year-old man admitted with DKA. Initially admitted to the ICU and subsequently transferred to regular medical floor. Diabetes mellitus type 2 with DKA Patient reports he ran out of medications 3 days ago Continue sliding scale, mealtime insulin and Lantus Severe sepsis secondary to Aspiration pneumonia hypothermia, tachycardia, tachypnea and lactic acidosis Sepsis resolved Rocephin and azithromycin Supplemental oxygen as needed CATHY Secondary to volume depletion IV fluids completed Pseudohyponatremia Secondary to DKA Resolved hypomagnesemia Secondary to volume depletion Replete and replace Severe metabolic acidosis Secondary to DKA Resolved History of cocaine use Educated on the importance of cessation DVT prophylaxis with heparin Attending Dr. Wood Full code Time Spent With Patient Time: Total time managing care of this patient today ____ minutes. Quality Stroke Does the patient have a stroke diagnosis?: No VTE Prior VTE?: No VTE Risk Level:: Medical - moderate - high VTE Device Contraindication: N/A - Device Ordered VTE Drug Contraindication: N/A - Med Ordered
[2022-10-29 15:00] VITALS: BP 130/86; PULSE 99; RESP 14; TEMP 36.6; O2SAT 96
[2022-10-29 16:35] LABS: Glucose, Whole Blood 449 mg/dL (60-115)
--- NOTE | 2022-10-29 18:23 | PC.NURSE ---
Critical blood glucose reported to Margaret Law NP insulin adjusted and given per order. 1630 10 units given plus 5 units lispro for POC of 449 per Margaret Diaz NP. Mag and potassium repleated per order. Pt out of bed with steady gait. Voiding without difficulty. Updated on plan throughout shift. Will continue to monitor and report changes
[2022-10-29 19:50] VITALS: BP 116/72; PULSE 106; RESP 14; TEMP 36.3; O2SAT 95
[2022-10-29 20:10] LABS: Glucose, Whole Blood 265 mg/dL (60-115)
[2022-10-29] MEDS: Insulin Glargine,Hum.rec.anlog 100 UNIT/ML 10 ML VIAL 15 UNIT SUBCUT (20:13)
[2022-10-30] MEDS: cefTRIAXone sodium 1 GM in 0.9 % Sodium Chloride 50 ML IV (05:10)
[2022-10-30] MEDS: Azithromycin 500 MG in 0.9 % Sodium Chloride 250 ML 125 MG IV (05:50)
[2022-10-30 06:00] VITALS: BP 132/74; PULSE 93; RESP 18; TEMP 36.4; O2SAT 96; BMI 19.1
[2022-10-30 07:33] VITALS: BP 121/70; PULSE 94; RESP 18; TEMP 37.3; O2SAT 95
[2022-10-30 07:42] LABS: Glucose, Whole Blood 308 mg/dL (60-115)
[2022-10-30] MEDS: Magnesium Oxide 400 MG TABLET PO (07:52)
[2022-10-30] MEDS: Insulin Lispro 100 UNIT/ML 3 ML VIAL SUBCUT ×4 (07:52→11:44)
[2022-10-30] MEDS: Heparin Sodium,Porcine 5,000 UNIT/ML VIAL 5000 UNIT SUBCUT (07:52)
[2022-10-30 11:26] LABS: Glucose, Whole Blood 196 mg/dL (60-115)
[2022-10-30 11:34] LABS: Anion Gap 10 (12-20); Blood Urea Nitrogen 11 mg/dL (9-16); Calcium 9.2 mg/dL (8.4-10.2); Carbon Dioxide 30 mmol/L (22-29); Chloride 104 mmol/L (96-108); Creatinine Clr Calc Pharmacy 127.3; Estimated Glomerular Filt Rate > 60; Glucose Random 173 mg/dL (60-115); Magnesium 2.1 mg/dL (1.6-2.6); Sodium 141 mmol/L (135-145)
[2022-10-30] MEDS: Potassium Chloride ER 20 MEQ TAB.ER.PRT 60 MEQ PO (12:42)
[2022-10-30 14:00] VITALS: BP 116/74; PULSE 97; RESP 18; TEMP 36.9; O2SAT 97
--- NOTE | 2022-10-30 14:53 | P.DS_ITS ---
DS: Providers Provider Date of Service: 10/30/22 Date of admission: 10/28/22 04:08 Date of discharge: 10/30/22 Primary care physician: Scott Greco MD Attending physician on discharge: Kvng Wood Discharging clinician: Grace Butterfield DS: Diagnosis Discharge Diagnosis (1) DKA (diabetic ketoacidosis): Status: Acute DS: Summary Hospital Course Hospital Course: From H&P on day of admission 32-year-old male with underlying history of type 1 diabetes who has been seen in this hospital in the past for hyperglycemia but not DKA, who has previous hemoglobin A1c 1 year ago was 14, his history of cocaine use disorder, had presented today to the emergency room after being found by the police department in the hallway of an apartment building.? Patient was transported via EMS who administered Narcan on the field without much improvement, Narcan was repeated in the emergency room without any improvement.? Patient appeared to be somewhat lethargic and being a poor historian, his ER workup reveal a white count 76104, H&H of 18 and 54.9 respectively, platelet of 413, 20% bandemia.? Sodium 128, potassium 4.5, chloride 96, carbon dioxide less than 5, BUN 20, creatinine 2.07, random glucose 626, alk-phos 244, protein 9.6, albumin 5.3, beta hydroxybutyrate acid 14.1; venous blood gas shows pH of 6.6 8, pCO2 of 15, PO2 of 83, HC03 of 2, PO2 93. ? Patient was given IV fluids x2 L, started on insulin drip at 5 units/hour and we were called for admission.? No images have been done, patient appears to be having some diarrhea, unable to answer my questions at this point stating that his whole body hurts however he is not able to answer further complex questions in regards to his symptoms. At this point my concern is this patient's breathing pattern, low pH, a white count and bandemia along with a possible occult infection leading to the DKA, images will be ordered and the patient will be transferred to the ICU as well as possible for further care. Diabetes mellitus type 2 with DKA secondary to non-compliance due to running out of medications over the long weekend. He was initially admitted to the ICU and placed on insulin drip. His bicarb improved, anion gap closed and blood sugar improved. He was transitioned back to sub Q Lantus and He is currently tolerating a diabetic diet and is eager to return home. He states that he has meds to diamond picker from his pharmacy and doesn't need any new prescriptions for his insulin or diabetic supplies. Severe sepsis secondary to Aspiration pneumonia hypothermia, tachycardia, tachypnea and lactic acidosis. Sepsis resolved, WBC trending down. He was initially treated with IV Rocephin and azithromycin. He has no respiratory symptoms and is currently on room air. will transition to po antibiotics upon discharge. tox screen was positive for cocaine. he was encouraged to avoid cocaine use in the future. Hypokalemia/hypomagnesemia. Secondary to DKA. Replaced and improved. Time Spent with Patient Time attestation: Total time managing care of this patient today ____ minutes. Discharge coordination time: Greater than 30 minutes Quality: Safe Use of Opioids Does Pt have an Active Cancer Diagnosis on the Problem List?: No Quality: Stroke Does the patient have a stroke diagnosis?: No Physical Exam Vital Signs: Vital Signs: Last Vital Signs Temp 98.5 F 10/30/22 14:00 Pulse 97 10/30/22 14:00 Resp 18 10/30/22 14:00 BP 116/74 10/30/22 14:00 Pulse Ox 97 10/30/22 14:00 O2 Del Method Room Air 10/30/22 14:00 O2 Flow Rate 2 10/28/22 09:00 BMI result Body Mass Index 19.1 Const: General: cooperative, comfortable, alert and awake Nutritional Appearance: average body habitus Orientation/consciousness: patient oriented x3 Resp: Effort & Inspection: normal respiratory effort, no respiratory distress and no use of accessory muscles Cardio: Rate: regular rate GI: Inspection: No distended Palpation (GI): Soft to palpation Neuro: General: patient oriented x3 and CN's II-XI intact bilaterally Extrem: General: Yes no pedal edema DS: Data Data Completed and Pending Labs on day of discharge: Laboratory Results - last 24 hr 10/29/22 10/29/22 10/30/22 16:32 19:55 07:35 Sodium Potassium Chloride Carbon Dioxide Anion Gap BUN Creatinine Estim Creat Clear Calc Estimated GFR POC Glucose 449 H* 265 H 308 H Random Glucose Calcium Magnesium 10/30/22 10/30/22 10:59 11:20 Sodium 141 Potassium 3.0 L Chloride 104 Carbon Dioxide 30 H Anion Gap 10 L BUN 11 Creatinine 0.65 Estim Creat Clear Calc 127.3 Estimated GFR > 60 POC Glucose 196 H Random Glucose 173 H Calcium 9.2 Magnesium 2.1 Preliminary micro results at discharge 10/28/22 06:23 Blood Culture - Preliminary Blood - Venous No growth after 48 hours. 10/28/22 06:03 Blood Culture - Preliminary Blood - Venous No growth after 48 hours. Discharge Plan Discharge Anticipated Discharge Date/Time: 10/29/22 13:00 Patient Disposition: Home, Self-Care Discharge Diagnosis: DKA low potassium, low magnesium CATHY aspiration pneumonia [facility] - 1 Week Discharge Medications: New azithromycin 250 mg tablet 250 mg PO DAILY 3 Days Qty: 3 0RF cefuroxime axetil 500 mg tablet 500 mg PO BID 3 Days Qty: 6 0RF Continued insulin glargine [Lantus Solostar U-100 Insulin] 100 unit/mL (3 mL) insulin pen 18 unit subcut DAILY insulin lispro 100 unit/mL Insulin Pen 1 sliding scale dose SUBCUT USEASDIRECTD Rx Instructions: blood sugar 200-250: 10 units, 251-300: 15 units, 301-350: 20 units, 351-400: 25 units. NTE: 100 U /DAY Discharge Orders: Discharge Order (Routine); Ordered 10/30/22 Ordered By: Grace Butterfield Diet: Advance to usual diet Activity on Discharge: As tolerated Stand Alone Forms: Patient Portal Discharge page Care Plan Goals: see below Health Concerns: DKA low magnesium, low potassium cocaine use pneumonia Plan of Treatment: check blood sugars before meals and at bedtime, keep a log of blood sugars and call PCP to schedule follow up appointment take insulin as prescribed finish course of antibiotics avoid cocaine use Assessment: see discharge summary
--- NOTE | 2022-10-30 15:20 | MHC.CM.PN ---
Pt medically cleared for D/C home self-care, pt has a family friend for transport.
[2022-10-31 06:18] LABS: Glucose, Whole Blood > 600 mg/dL (60-115)
[2022-10-31 06:20] LABS: Glucose, Whole Blood > 600 mg/dL (60-115)
== END 2022-10-30 15:56 | disposition home or self-care (01) | DRG 720 ==
LOC: HO.ED 04:02 → HO.EDOVER 04:30 → HO.ICU 04:37 → HO.IMC 10-29 05:30
PROVIDERS: Internal Medicine Critical Care Medicine; Nurse Practitioner Acute Care; Admitting Provider Physician Assistant Medical; Emergency Provider Student in an Organized Health Care Education/Training Program; PCP Internal Medicine Geriatric Medicine; Visit Provider Physician Assistant Medical
DX: A41.9 Sepsis, unspecified organism (principal); J69.0 Pneumonitis due to inhalation of food and vomit; N17.9 Acute kidney failure, unspecified; E10.10 Type 1 diabetes mellitus with ketoacidosis without coma; R65.20 Severe sepsis without septic shock; E86.0 Dehydration; R68.0 Hypothermia, not associated with low environmental temperature; F14.10 Cocaine abuse, uncomplicated; R33.9 Retention of urine, unspecified; E83.42 Hypomagnesemia; Z88.0 Allergy status to penicillin
CPT/HCPCS: 36415; 70450; 71045; 71250; 74176; 80048; 80053; 80307; 81001; 81003; 82010; 82803; 82947; 83036; 83605; 83735; 85007; 85025; 85027; 87040; 87205; 99285; C1758; J0456; J0696; J1170; J1643; J3475

== ENCOUNTER → 2022-10-28 04:08 | Outpatient (BNV) | payer MEDICAID, SELFPAY | PROVIDERS: Admitting Provider Physician Assistant Medical; Emergency Provider Student in an Organized Health Care Education/Training Program; Visit Provider Physician Assistant Medical | DX: E11.10 Type 2 diabetes mellitus with ketoacidosis without coma (principal); N17.9 Acute kidney failure, unspecified; F14.10 Cocaine abuse, uncomplicated | CPT/HCPCS: 99291 ==

== ENCOUNTER → 2022-10-28 04:08 | Outpatient (BNV) | payer MEDICAID, SELFPAY | PROVIDERS: Admitting Provider Physician Assistant Medical; Emergency Provider Student in an Organized Health Care Education/Training Program; Visit Provider Nurse Practitioner Acute Care | DX: E11.10 Type 2 diabetes mellitus with ketoacidosis without coma (principal) | CPT/HCPCS: 99232; 99239 ==

== ENCOUNTER 2023-06-01 10:13 | Outpatient (REF) | payer MEDICAID, SELFPAY ==
[2023-06-01 11:37] LABS: MANUAL DIFF FLAG NO
[2023-06-01 11:49] LABS: Basophils Absolute Auto 0.1 X10*3/uL (0.0-0.2); Basophils Percent Auto 1.6 % (0-2); Eosinophils Absolute Auto 0.7 X10*3/uL (0.0-0.4); Eosinophils Percent Auto 8.3 % (0-4); Hematocrit 43.3 % (42.0-52.0); Hemoglobin 14.6 g/dl (14.0-18.0); Imm Gran Abs Auto 0.11 X10*3/uL (0.00-0.03); Imm Gran Pct Auto 1.2 % (0.0-0.4); Lymphocytes Absolute Auto 1.8 X10*3/uL (1.2-4.9); Lymphocytes Percent Auto 20.6 % (20-40); Mean Corpuscular HGB Conc 33.7 g/dl (31.0-36.0); Mean Corpuscular Hemoglobin 29.2 pg (27.0-33.0); Mean Corpuscular Volume 86.6 fL (80.0-98.0); Mean Platelet Volume 10.1 fL (9.4-12.4); Monocytes Absolute Auto 0.7 X10*3/uL (0.1-1.2); Monocytes Percent Auto 8.1 % (2-11); Neutrophils Absolute Auto 5.3 x10*3/uL (2.0-8.3); Neutrophils Percent Auto 60.2 % (45-73); Platelet Count 310 X10*3/uL (160-400); Red Cell Distribution Width 12.2 % (11.0-16.0); White Blood Count 8.9 X10*3/uL (4.8-10.8)
[2023-06-01 12:42] LABS: Alanine Aminotransferase 43 U/L (0-40); Albumin Level 4.5 g/dL (3.5-5.0); Alkaline Phosphatase 110 U/L (39-117); Anion Gap 13 (12-20); Aspartate Amino Transferase 17 U/L (5-37); Bilirubin Total 0.4 mg/dL (0.0-1.0); Blood Urea Nitrogen 18 mg/dL (9-16); Calcium 9.9 mg/dL (8.4-10.2); Carbon Dioxide 27 mmol/L (22-29); Chloride 98 mmol/L (96-108); Estimated Glomerular Filt Rate > 60; Phosphorus 4.4 mg/dL (2.7-4.5); Potassium 4.3 mmol/L (3.3-5.1); Sodium 134 mmol/L (135-145); Total Protein 7.7 g/dL (6.5-8.0)
[2023-06-01 13:04] LABS: Glucose Random 436 mg/dL (60-115)
== END 2023-06-01 10:14 | disposition home or self-care (01) ==
LOC: HO.HHCL 10:13
PROVIDERS: Visit Provider Internal Medicine
DX: R19.7 Diarrhea, unspecified (principal)
CPT/HCPCS: 36415; 80053; 83735; 84100; 85025

== ENCOUNTER 2024-04-15 14:17 | Outpatient (REF) | payer MEDICAID, SELFPAY ==
--- NOTE | ~2024-04-15 | XR_ITS ---
EXAMINATION: XR KNEE, LEFT CLINICAL INFORMATION: limited mobility after fall COMPARISON: None available. TECHNIQUE: Four views of the left knee. FINDINGS: No fracture or joint effusion. Bipartite patella. Alignment is anatomic. Joint spaces are maintained. No joint effusion or soft tissue abnormality. XR/XR knee LT 4V IMPRESSION: No acute findings left knee. Bipartite patella. Electronically signed by: Corey Mckeon MD 04/15/2024 03:07 PM [facility]
--- OUTSIDE RECORDS SUMMARY | 2024-04-15 14:40 | XMS_ITS | Encounter Summary ---
Author Organization [facility] Address [address] [place] [address] Care Team Providers Care Ophthalmic Asst Name Role Phone Physician, Pcp Unknown Primary Care Provider Joselyn vailable Reason for Visit * Reason Comments Wound Infection Left knee wound, fel l on knee, looks to be infected in picture. PT diabetic Encounter Details Date Type Department Care Team (Late st Contact Info) Description 04/14/2024 4:57 PM EST - 04/14/2024 9:57 PM EST Emergency [facility] Emergency [address] [place] [address] Discharge Disposition: Home or Self Care Social History Tobacco Use Types Packs/Day Years Used Date Smoking Tobacco: Never Assessed Sex and Gender Information Value Date Recorded Sex Assigned at Not on file Legal Sex Male 3:33 PM EST Gender Identity Not on file Sexual Orientation Not on file documented as of this encounter Last Filed Vital Signs Vital Sign Reading Time Taken Comments Blood Pressure 129/96 04/14/2024 4:39 PM EST Pulse 108 04/14/2024 4:39 PM EST Temperature 36.6 ??C (97.9 ??F) 04/14/2024 10:[address] Respiratory Rate 16 04/14/2024 4:39 PM EST Oxygen Saturation 98% 04/14/2024 4:39 PM EST Inhaled Oxygen Concentration - - Weight 63.5 kg (140 lb) 04/14/2024 10:54 AM EST Height 165.1 cm (5' 5 ) 04/14/2024 10:54 AM EST Body Mass Index 23.3 04/14/2024 10:54 AM EST documented in this encounter Discharge Disposition Disposition Code Departure Means Destination Comment s Home or Self Care documented in this encounter Progress Notes * Cloleen White RN - 04/14/2024 10:54 AM EST Pt reports slip and fall on ice approx 3 days ago and has wound to left knee from fall. Wound is approx half dollar in size, closed and dry. Surrounding skin is red and hot to touch documented in this encounter Plan of Treatment Not on file documented as of this encounter Procedures Procedure Name Priority Date/Time Associated Diagnosis Comments CBC WITH AUTO DIFFERENTIAL STAT 04/14/2024 11:38 AM EST CBC AND DIFFERENTIAL STAT 04/14/2024 11:38 AM EST BASIC METABOLIC PANEL STAT 04/14/2024 11:38 AM EST documented in this encounter Results * (ABNORMAL) CBC auto differential (04/14/2024 11:38 AM EST) WBC 13.3(H) 4.8 - 10.8 K/mcL LAB HEMETOLOGY METHOD 04/14/2024 12:14 PM [facility] RBC 5.10 4.50 - 5.50 M/mcL LAB HEMETOLOGY METHOD 04/14/2024 12:14 PM [facility] Hemoglobin 14.6 13.5 - 17.5 g/dL LAB HEMETOLOGY METHOD 04/14/2024 12:14 PM [facility] Hematocrit 43.9 42.0 - 54.0 % LAB HEMETOLOGY METHOD 04/14/2024 12:14 PM [facility] MCV 86.6 79.0 - 98.0 FL LAB HEMETOLOGY METHOD 04/14/2024 12:14 PM [facility] MCH 28.8 27.0 - 32.0 pcg LAB HEMETOLOGY METHOD 04/14/2024 12:14 PM [facility] MCHC 33.3 32.0 - 37.0 g/dL LAB HEMETOLOGY METHOD 04/14/2024 12:14 PM [facility] RDW 11.9 11.0 - 15.0 % LAB HEMETOLOGY METHOD 04/14/2024 12:14 PM [facility] Platelets 309 130 - 400 K/mcL LAB HEMETOLOGY METHOD 04/14/2024 12:14 PM [facility] MPV 10.3 7.0 - 11.0 FL LAB HEMETOLOGY METHOD 04/14/2024 12:14 PM [facility] NRBC 0.0 <1.0 % LAB HEMETOLOGY METHOD 04/14/2024 12:14 PM [facility] NRBC Absolute 0.00 <0.10 K/mcL LAB HEMETOLOGY METHOD 04/14/2024 12:14 PM [facility] Neutrophils Relative 79.5 % LAB HEMETOLOGY METHOD 04/14/2024 12:14 PM [facility] Lymphocytes Relative 12.1 % LAB HEMETOLOGY METHOD 04/14/2024 12:14 PM [facility] Monocytes Relative 6.3 % LAB HEMETOLOGY METHOD 04/14/2024 12:14 PM [facility] Eosinophils Relative 1.2 % LAB HEMETOLOGY METHOD 04/14/2024 12:14 PM [facility] Basophils Relative 0.5 % LAB HEMETOLOGY METHOD 04/14/2024 12:14 PM [facility] Immature Granulocytes Relative 0.4 % LAB HEMETOLOGY METHOD 04/14/2024 12:14 PM [facility] Neutrophils Absolute 10.60(H) 1.50 - 7.00 K/mcL LAB HEMETOLOGY METHOD 04/14/2024 12:14 PM [facility] Lymphocytes Absolute 1.61 1.00 - 5.00 K/mcL LAB HEMETOLOGY METHOD 04/14/2024 12:14 PM [facility] Monocytes Absolute 0.84 0.20 - 1.00 K/mcL LAB HEMETOLOGY METHOD 04/14/2024 12:14 PM EST [facility] Eosinophils Absolute 0.16 0.00 - 0.50 K/[facility] LAB HEMETOLOGY METHOD 04/14/2024 12:14 PM [facility] Basophils Absolute 0.07 0.00 - 0.20 K/[facility] LAB HEMETOLOGY METHOD 04/14/2024 12:14 PM [facility] Immature Granulocytes Absolute 0.06(H) 0.00 - 0.03 K/[facility] 04/14/2024 12:14 PM [facility] Blood Venous blood specimen / Unknown Venipuncture / Unknown 04/14/2024 11:38 AM EST 04/14/2024 12:07 PM EST us Candice [facility] LAB BLOOD ORDERABLES Final Re sult [facility] [address] [place] [address], * (ABNORMAL) Basic metabolic panel (04/14/2024 11:38 AM EST) Sodium 134 133 - 145 mmol/L LAB CHEMISTRY METHOD 04/14/2024 12:59 PM [facility] Potassium 4.4 3.5 - 5.5 mmol/L LAB CHEMISTRY METHOD 04/14/2024 12:59 PM [facility] Chloride 99 96 - 110 mmol/L LAB CHEMISTRY METHOD 04/14/2024 12:59 PM [facility] CO2 25 21 - 32 mmol/L LAB CHEMISTRY METHOD 04/14/2024 12:59 PM [facility] Anion Gap 10 3 - 11 LAB CHEMISTRY METHOD 04/14/2024 12:59 PM [facility] Glucose 434(HH) 70 - 100 mg/dL LAB CHEMISTRY METHOD 04/14/2024 12:59 PM EST [facility] BUN 13 5 - 25 mg/dL LAB CHEMISTRY METHOD 04/14/2024 12:59 PM [facility] Creatinine 0.87 0.70 - 1.30 mg/dL LAB CHEMISTRY METHOD 04/14/2024 12:59 PM EST [facility] eGFR 117 >=60 mL/min/1. 73m2 LAB CHEMISTRY METHOD 04/14/2024 12:59 PM EST [facility] Comment:Calculation based on the??Chronic Kidney Disease Epidemiology Collaboration (CKD-EPI) equation refit??without adjustment for race. BUN/Creatinine Ratio 14.9 LAB CHEMISTRY METHOD 04/14/2024 12:59 PM [facility] Calcium 9.4 8.5 - 10.5 mg/dL LAB CHEMISTRY METHOD 04/14/2024 12:59 PM [facility] Blood Venous blood specimen / Unknown Venipuncture / Unknown 04/14/2024 11:38 AM EST 04/14/2024 12:07 PM EST [facility] LAB BLOOD ORDERABLES Final Re sult [facility] [address] [place] [address], documented in this encounter Visit Diagnoses Not on filedocumented in this encounter Administered Medications Inactive Administered Medications - up to 3 most recent administrations Medication Order MAR Action Action Date Dose Rate Site acetaminophen (TYLENOL) tablet 1,000 mg 1,000 mg, oral, Once, On Danisha 04/14/24 at 2020, For 1 dose Given 04/14/2024 8:24 PM EST 1,000 mg documented in this encounter Active and Recently Administered Medications Times are shown in EST. Scheduled Medication Order 04/12/2024 04/13/2024 04/14/2024 acetaminophen (TYLENOL) tablet 1,000 mg (COMPLETED) 1,000 mg, oral, Once, On Danisha 04/14/24 at 2019, For 1 dose 2023 (Given - Provid er: Stacy Pang RN) documented in this encounter Orders Medications Ordered That Antony ht Not Have Been Administered Count Last Ordered Date First Ordered Date acetaminophen (TYLENOL) tablet 1,000 mg 1 0 04/14/2024 documented in this encounter Care Teams Ophthalmic Asst Relationship Specialty Start Date End Date Physician, Pcp Unknown PCP - General 04/14/24 documented as of this encounter
--- OUTSIDE RECORDS SUMMARY | 2024-04-15 14:40 | XMS_ITS | Clinical Summary ---
Author Organization [facility] Address [address] [place] [address] Phone Care Team Providers Care Registered Account Administrator Name Role Phone Physician, Pcp Unknown Primary Care Provider Joselyn vailable Allergies Active Allergy Reactions Criticality Noted Date Comments Aspirin Anaphylaxis High 04/14/2024 Encounters Date Type Department Care Team Description 04/14/2024 4:57 PM EST - 04/14/2024 9:57 PM EST Emergency [facility] Emergency [address] [place] [address] Discharge Disposition: Home or Self Care from Last 3 Months Social History Tobacco Use Types Packs/Day Years Used Date Smoking Tobacco: Never Assessed Sex and Gender Information Value Date Recorded Sex Assigned at Not on file Legal Sex Male 3:33 PM EST Gender Identity Not on file Sexual Orientation Not on file Obstetrics History Last Filed Vital Signs Vital Sign Reading [...] Mass Index 23.3 04/14/2024 10:54 AM EST Plan of Treatment Health Maintenance Due Date Last Done Comments Diabetes: Annual Foot Exam 2000 Diabetes: Annual Retina Eye Exam 2000 Hepatitis A Vaccines (1 of 2 - Risk 2-dose series) 2009 Hepatitis B Vaccines (1 of 3 - 19+ 3-dose series) 2009 Pneumococcal Vaccine: Pediatrics (0 to 5 Years) and At-Risk Patients (6 to 64 Years) (1 of 2 - PCV) 2009 Cholesterol Screening (Lipid Panel) 03/24/2023 HIV Screening 03/24/2023 Hepatitis C Screening 03/24/2023 Social Influencers of Health Screening 03/24/2023 COVID-19 Vaccine (4 - 2023-2 5 season) 2023 02/28/2021, 07/11/2020, 06/20/2020 Influenza Vaccine (#1) 2023 , 01/01/2018 Depression Screening 11/28/2023 11/27/2022 Diabetes: Annual Urine Albumin-Creatinine Ratio (uACR) 04/14/2024 Diabetes: Blood Sugar Contro l Test (HGBA1C) 04/14/2024 06/01/2023 Diabetes: Annual GFR (Glomerular Filtration Rate) 04/14/2025 04/14/2024 DTaP,Tdap,and Td Vaccines (2 - Td or Tdap) 09/07/2028 09/07/2018 HIB Vaccines Aged Out No longer eligi ble based on patient's age to complete this topic HPV Vaccines Aged Out No longer eligi ble based on patient's age to complete this topic IPV Vaccines Aged Out No longer eligi ble based on patient's age to complete this topic MMR Vaccines Aged Out No longer eligi ble based on patient's age to complete this topic Meningococcal ACWY Vaccine Aged Out N o longer eligible based on patient's age to complete this topic Meningococcal B Vacine Aged Out No lo nger eligible based on patient's age to complete this topic RSV Immunization Patients Under 20 months Aged Out No longer eligible b ased on patient's age to complete this topic Varicella Vaccines Aged Out No longer eligible based on patient's age to complete this topic Procedures Procedure Name Priority Date/Time Associated Diagnosis Comments CBC WITH AUTO DIFFERENTIAL STAT 04/14/2024 11:38 AM EST BASIC METABOLIC PANEL STAT 04/14/2024 11:38 AM EST CBC AND DIFFERENTIAL STAT 04/14/2024 11:38 AM EST from Last 3 Months Results * (ABNORMAL) CBC auto differential (04/14/2024 11:38 AM EST) WBC 13.3(H) 4.8 - 10.8 K/mcL LAB HEMETOLOGY METHOD 04/14/2024 12:14 PM [facility] RBC 5.10 4.50 - 5.50 M/mcL LAB HEMETOLOGY METHOD 04/14/2024 12:14 PM [facility] Hemoglobin 14.6 13.5 - 17.5 g/dL LAB HEMETOLOGY METHOD 04/14/2024 12:14 PM [facility] Hematocrit 43.9 42.0 - 54.0 % LAB HEMETOLOGY METHOD 04/14/2024 12:14 PM [facility] MCV 86.6 79.0 - 98.0 FL LAB HEMETOLOGY METHOD 04/14/2024 12:14 PM [facility] MCH 28.8 27.0 - 32.0 pcg LAB HEMETOLOGY METHOD 04/14/2024 12:14 PM [facility] MCHC 33.3 32.0 - 37.0 g/dL LAB HEMETOLOGY METHOD 04/14/2024 12:14 PM [facility] RDW 11.9 11.0 - 15.0 % LAB HEMETOLOGY METHOD 04/14/2024 12:14 PM [facility] Platelets 309 130 - 400 K/mcL LAB HEMETOLOGY METHOD 04/14/2024 12:14 PM [facility] MPV 10.3 7.0 - 11.0 FL LAB HEMETOLOGY METHOD 04/14/2024 12:14 PM [facility] NRBC 0.0 <1.0 % LAB HEMETOLOGY METHOD 04/14/2024 12:14 PM [facility] NRBC Absolute 0.00 <0.10 K/mcL LAB HEMETOLOGY METHOD 04/14/2024 12:14 PM [facility] Neutrophils Relative 79.5 % LAB HEMETOLOGY METHOD 04/14/2024 12:14 PM [facility] Lymphocytes Relative 12.1 % LAB HEMETOLOGY METHOD 04/14/2024 12:14 PM [facility] Monocytes Relative 6.3 % LAB HEMETOLOGY METHOD 04/14/2024 12:14 PM [facility] Eosinophils Relative 1.2 % LAB HEMETOLOGY METHOD 04/14/2024 12:14 PM [facility] Basophils Relative 0.5 % LAB HEMETOLOGY METHOD 04/14/2024 12:14 PM [facility] Immature Granulocytes Relative 0.4 % LAB HEMETOLOGY METHOD 04/14/2024 12:14 PM [facility] Neutrophils Absolute 10.60(H) 1.50 - 7.00 K/mcL LAB HEMETOLOGY METHOD 04/14/2024 12:14 PM [facility] Lymphocytes Absolute 1.61 1.00 - 5.00 K/mcL LAB HEMETOLOGY METHOD 04/14/2024 12:14 PM [facility] Monocytes Absolute 0.84 0.20 - 1.00 K/mcL LAB HEMETOLOGY METHOD 04/14/2024 12:14 PM [facility] Eosinophils Absolute 0.16 0.00 - 0.50 K/mcL LAB HEMETOLOGY METHOD 04/14/2024 12:14 PM [facility] Basophils Absolute 0.07 0.00 - 0.20 K/mcL LAB HEMETOLOGY METHOD 04/14/2024 12:14 PM [facility] Immature Granulocytes Absolute 0.06(H) 0.00 - 0.03 K/mcL LAB HEMETOLOGY METHOD 04/14/2024 12:14 PM [facility] Blood Venous blood specimen / Unknown Venipuncture / Unknown 04/14/2024 11:38 AM EST 04/14/2024 12:07 PM EST us Candice VAZ LAB BLOOD ORDERABLES Final Re sult [facility] [address] [place] [address], * (ABNORMAL) Basic metabolic panel (04/14/2024 11:38 AM EST) Sodium 134 133 - 145 mmol/L LAB CHEMISTRY METHOD 04/14/2024 12:59 PM [facility] Potassium 4.4 3.5 - 5.5 mmol/L LAB CHEMISTRY METHOD 04/14/2024 12:59 PM [facility] Chloride 99 96 - 110 mmol/L LAB CHEMISTRY METHOD 04/14/2024 12:59 PM [facility] CO2 25 21 - 32 mmol/L LAB CHEMISTRY METHOD 04/14/2024 12:59 PM [facility] Anion Gap 10 3 - 11 LAB CHEMISTRY METHOD 04/14/2024 12:59 PM [facility] Glucose 434(HH) 70 - 100 mg/dL LAB CHEMISTRY METHOD 04/14/2024 12:59 PM [facility] BUN 13 5 - 25 mg/dL LAB CHEMISTRY METHOD 04/14/2024 12:59 PM [facility] Creatinine 0.87 0.70 - 1.30 mg/dL LAB CHEMISTRY METHOD 04/14/2024 12:59 PM [facility] eGFR 117 >=60 mL/min/1. 73m2 LAB CHEMISTRY METHOD 04/14/2024 12:59 PM [facility] Comment:Calculation based on the??Chronic Kidney Disease Epidemiology Collaboration (CKD-EPI) equation refit??without adjustment for race. BUN/Creatinine Ratio 14.9 LAB CHEMISTRY METHOD 04/14/2024 12:59 PM EST [facility] Calcium 9.4 8.5 - 10.5 mg/dL LAB CHEMISTRY METHOD 04/14/2024 12:59 PM EST [facility] Blood Venous blood specimen / Unknown Venipuncture / Unknown 04/14/2024 11:38 AM EST 04/14/2024 12:07 PM EST us Candice VAZ LAB BLOOD ORDERABLES Final Re sult [facility] [address] [place] [address], from Last 3 Months Insurance MEDICAID - [place] Care Teams Registered Account Administrator Relationship Specialty Start Date End Date Physician, Pcp Unknown PCP - General 04/14/24
--- OUTSIDE RECORDS SUMMARY | 2024-04-15 14:40 | XMS_ITS | Clinical Summary ---
Author Organization [employer] Address [address] [facility] 7t [place] [address] Care Team Providers Care Sql Report Writer Name Role Phone Name, Scott RICHTER Primary Care Provider [phone] Allergies Active Allergy Reactions Criticality Noted Date Comments Aspirin 09/29/2022 Penicillin G 07/09/2020 Medications * This document contains information received from the source organization and may not represent a complete record from that organization. insulin glargine (Lantus SoloStar) 100 UNIT/ML pen Inject 24 Units under the skin in the morning. 2 Active Pentips 32G X 4 MM misc USE WITH INSULIN 100 each 10 3 Active FREESTYLE LITE test strip TEST BLOOD SUGAR THREE TIMES DAILY 100 strip 5 3 Active TRUEplus Lancets 33G misc 1 Lancet 3 times daily. TEST BLOOD SUGAR THREE TIMES A DAY 100 each 11 3 Active Alcohol Swabs (Alcohol Prep) 70 % pads USE DIRECTED TWICE DAILY 3 Active Sod Fluoride-Potassium Nitrate 1.1-5 % pasteIndications:D ental caries [place] teeth for 2 minutes, morning and night. Spit, do not rinse. Do not eat or drink anything for 30 minutes following brushing. 112 g 3 4 Active Blood Glucose Monitoring Suppl (FreeStyle Pringle Lite) w/Device kit TEST BLOOD SUGAR THREE TIMES DAILY 1 kit 4 Active insulin lispro (HumaLOG KWIKPEN) 100 UNIT/ML injectionIndicatio ns:Type 1 diabetes mellitus with hyperglycemia (CMS/HCC) INJECT PER SLIDING SCALE: BLOOD SUGAR 200-250 = 10 UNITS, 250-300 = 15 UNITS, 301-350 = 20 UNITS, 351-400 = 25 UNITS. NO MORE THAN 100 UNITS DAILY 30 mL 3 4 Active Active Problems Problem Noted Date Diagnosed Date Crack cocaine use 12/03/2023 Substance abuse 12/03/2023 Underweight 12/03/2023 Diarrhea of presumed infectious origin Assessment & Plan (06/01/2023 11:40 AM EDT): Unclear if it is an institutional pathogen vs withdrawal sxs? I will treat empirically with Flagyl covering for anaerobes vs C.diff, stool tests ordered Counseled re aggressive PO hydration, avoid carbonated and sweetened beverage, I gave him infor re BRAT diet. Obtain [facility] HD and [place] program discharge info, needs a HD fu appt in 1-2w. Rx Lomotil prn + pepto bysmol Severe anxiety 11/27/2022 Alcohol use disorder 11/27/2022 Stimulant use disorder 11/27/2022 Cocaine dependence 02/03/2022 Hyperglycemia due to type 1 diabetes mellitus Assessment & Plan (06/01/2023 10:41 AM EDT): Unable to give urine today to check for ketones, I will order labs and fu results. Counseled re aggressive hydration, avoid sweeteed drinks. Continue Lantus 28u + Humalog scale tid ac meals, will fu with lab results. I will not give extra Humalog today since he already had 18u appox 2-3h ago. He will go home, check rbs and administer Humalog according to sliding scale. Will schedule an appt with his PCP for fu. Severe episode of recurrent major depressive disorder, without psychotic features 02/03/2022 Assessment & Plan (11/27/2022 9:58 AM EDT): Assessment: Patient with anhedonia, depressed mood, insomnia, fatigue, low self-esteem, diminished ability to concentrate, restlessness, anxiousness, persistent worry, diminished ability to relax, irritability and fearfulness. Factors contributing to his sxs are, homelessness, lack of social support, susbtance use, financial struggle. Patient will benefit from Ind. Therapy, but doesn't have a contact number so he agreed to remained engage with me until he stabilize. At this time Nishant Devine meets criteria for Visit Diagnoses: Problem List Items Addressed This Visit Other Severe episode of recurrent major depressive disorder, without psychotic features (CMS/HCC) Severe anxiety Alcohol use disorder Stimulant use disorder Patient ready to address current needs Yes Strengths include understand where to get support PLAN: 1. Follow up with [facility]: Recommended for follow-up: 11/26/22 2. Patient goal is to become mentally stable and sober 3. Behavioral Recommendations a. [facility] follow up b. Engagement with -ET c. Referral to cocaine support group Assessment & Plan (09/01/2022 3:57 PM EDT): Assessment: Nishant was engaged with active reflective listening and open-ended questions. Assessed symptoms, risks, and social supports with direct questions. Discussed current symptoms intensity and frequency. Emotions were normalized and validated. Provided psychoeducation around Coping skills to manage depressive and anxiety sxs. Discussed harm reduction and encouraged him to seek fentanyl test strips at [facility], also encouraged him to participate of the Cocaine Support Group on Tuesdays at 2pm. Discussed OP therapy and Medication management, he agreed to referral. Provided education around integrated medicine and the options of follow up BE's as needed. Provided contact information should questions or concerns arise. Plan: Nishant will engage in effective coping mechanisms to address depressive and anxiety sxs. He will be referred to OP services for Ind. Therapy and Medication management. Patient with lack of motivation, sweats, palpitations, shortness of breath, nightmares, over eating, feeling hopeless, feeling like a failure, unable to concentrate, anxious, persistent worry, unable to relax, restlessness, fatigue, irritability, fearfulness. He denies SI, HI, or self-harm at this time. Recent divorce, not working, using cocaine on daily basis. Patient will benefit from Ind. Therapy and Medication Management. At this time Nishant Devine meets criteria for Visit Diagnoses: Problem List Items Addressed This Visit Other Mixed anxiety and depressive disorder Patient ready to address current needs Yes Strengths include willing to seek support PLAN: 1. Follow up with [facility]: Not recommended for follow-up 2. Patient goal is to engage in service 3. Behavioral Recommendations a. Ind. Therapy b. Medication management c. Use of coping skills Hyperglycemia 12/25/2017 Ketonuria 12/25/2017 T1DM (type 1 diabetes mellitus) 12/25/2017 Encounters Date Type Department Care Team Description 04/15/2024 1:20 PM EST Office Visit [facility] [address] [place] [phone] Pain of left lower extremity (Primary Dx); Acute pain of left knee 04/15/2024 Patient Outreach [address] [address] Scott Greco MD Care Coordination ([facility] Chelsey Castellon telephone call outreach) 04/15/[address] [address] Scott Greco MD Care Management ([facility]- chart review) 03/17/2024 Patient Outreach [address] [address] Jeferson Brenner Pre-visit Planning (Pre visit planning- [facility] unable to complete) 02/09/[address] [address] Antionette Krishnamurthy, RN Type 1 diabetes mellitus with hyperglycemia (CMS/HCC) (Primary Dx) 02/09/[address] [address] Scott Greco MD Telephone Call 01/29/[address] [address] Katie Miller [place] feb recalls from Last 3 Months Immunizations Name Administration Dates Next Due Influenza injectable quadriv alent IIV4 with preservative 04/07/2019,01/01/2018 Pfizer Covid-19 Vaccine 12+ 02/28/2021,,06/20/2020 Tdap 09/07/2018 Social History Tobacco Use Types Packs/Day Years Used Date Smoking Tobacco: Former Cigarettes Smokeless Tobacco: Never Tobacco Cessation:Counseling Given: Not Answered Alcohol Use Standard Drinks/Week Comments Never 0 (1 standard drink = 0.6 oz pur e alcohol) Depression Answer Date Recorded Patient Health Questionnaire-9 Score 21 11/27/2022 Housing Stability Answer Date Recorded What is your housing situation today? I have isauro shaffer 09/07/[address] you li ve. Do you have problems with any of the following? None of the above 09/07/2023 Food Insecurity Answer Date Recorded Within the past 12 months, y ou worried that your food would run out before you got money to buy more: Never True 09/07/2023 Within the past 12 months,th e food you bought just didn't last and you didn't have enough money to get more: Never True Transportation Answer Date Recorded In the past 12 months, has l ack of transportation kept you from medical appts, meetings, work or from getting things needed for daily living? No 12/11/2022 Utilities Answer Date Recorded In the past 12 months, has t he electric, gas, oil or water company threatened to shut off services in your home? No 12/11/2022 Depression Answer Date Recorded Patient Health Questionnaire-2 Score 6 11/27/2022 Internet Access Answer Date Recorded Internet Access Q1 Yes 10/26/2023 Internet Access Q2 Not on file 10/26/2023 Sex and Gender Information Value Date Recorded Sex Assigned at Male 12/23/2021 10:34 AM EDT Legal Sex Male 10:34 AM EDT Gender Identity Male 12/23/2021 10:34 AM EDT Sexual Orientation Choose not to disclose 2021 10:34 AM EDT Last Filed Vital Signs Vital Sign Reading Time Taken Comments Blood Pressure 120/78 04/15/2024 1:57 PM EST Pulse 96 04/15/2024 1:11 PM EST Temperature 36.8 ??C (98.3 ??F) 04/15/2024 1:11 PM ES T Respiratory Rate 16 04/15/2024 1:11 PM EST Oxygen Saturation 99% 06/01/2023 8:51 AM EDT Inhaled Oxygen Concentration - - Weight 58.5 kg (128 lb 14.4 oz) 06/01/2023 8:51 AM EDT Height 167.6 cm (5' 6 ) 02/03/2022 11:2 4 AM EST Body Mass Index 20.81 02/03/2022 11:24 AM EST Plan of Treatment Upcoming Encounters Date Type Department Care Team (Late st Contact Info) Description 05/25/2024 10:45 AM EDT Office Visit [facility] [address] [place] [address] [phone] Kristan Wetzel MD [address] [place], [place] [phone] 07/07/2024 11:15 AM EDT Office Visit [facility] [address] [place] [address] [phone] Name, MD Scott [address] [place], [place] [phone] Health Maintenance Due Date Last Done Comments HIV Screening 1990 Lipid Panel 1990 Diabetes: Foot Exam 2000 Eye Exam 2000 Alcohol/Substance Use Screening 2002 Family Planning (PISQ) 2005 Hepatitis C Screening 2008 Diabetes: Urine Protein Screening 2009 Hepatitis A Vaccines (1 of 2 - Risk 2-dose series) 2009 Hepatitis B Vaccines (1 of 3 - 19+ 3-dose series) 2009 Pneumococcal Vaccine: Pediatrics (0 to 5 Years) and At-Risk Patients (6 to 49) Years) (1 of 2 - PCV) 2009 Depression Monitoring (PHQ-9) 05/29/2023, 11/27/2022 Diabetes: Hemoglobin A1C 08/31/2023 06/01/2023 COVID-19 Vaccine ( - 2023-2 5 season) 2023 02/28/2021, 07/11/2020, 06/20/2020 Influenza Vaccine (#1) 2023 , 01/01/2018 Depression Screening 11/28/2023 11/27/2022, 11/27/2022 Dental Oral Exam 11/29/2023 05/29/2023 Dental Prophylaxis 11/29/2023 05/29/2023 Dental X-Ray: Bitewings 05/29/2024 05/29/19 24, 10/14/2021 SDOH Screening 09/06/2024 09/07/2023 Tobacco Screening 04/15/2025 04/15/2024 Dental X-Ray: Full Mouth 05/29/2026 024, 07/09/2020 DTaP/Tdap/Td Vaccines (2 - T d or Tdap) 09/07/2028 09/07/2018 Zoster Vaccines (1 of 2) 2040 RSV Patients and Patients Aged 60 years or older (1 - 1-dose 75+ series) 2065 HIB Vaccines Aged Out No longer eligi ble based on patient's age to complete this topic HPV Vaccines Aged Out No longer eligi ble based on patient's age to complete this topic IPV Vaccines Aged Out No longer eligi ble based on patient's age to complete this topic Meningococcal Vaccine Aged Out No lorena hellen eligible based on patient's age to complete this topic RSV under 20 months Aged Out No longe r eligible based on patient's age to complete this topic Rotavirus Vaccines Aged Out No longer eligible based on patient's age to complete this topic Procedures Procedure Name Priority Date/Time Associated Diagnosis Comments POCT GLYCATED HEMOGLOBIN, TOTAL Routine 06/01/2023 9:45 AM EDT Diarrhea of presumed infectious origin PROPHYLAXIS - ADULT Routine 05/29/2023 8 :45 AM EDT Periodontal disease Dental caries INTRAORAL - COMPLETE SERIES OF RADIOGRAPHIC IMAGES Routine 05/29/2023 8:45 AM EDT Periodontal disease Dental caries COMPREHENSIVE ORAL EVALUATION - NEW OR ESTABLISHED PATIENT Routine 05/29/2023 8:45 AM EDT Periodontal disease Dental caries from Last 3 Months or Most Recently Relevant to Health Maintenance Results * (ABNORMAL) POCT A1C (06/01/2023 9:45 AM EDT) Hemoglobin A1C 14.9(A) 4.0 - 6.0 % QC Media Lot # [id number] Blood 06/01/2023 9:45 AM EDT Renee Gaviria MD POINT OF CARE TEST ENTER /EDIT ORDERABLES Final Result from Last 3 Months or Most Recently Relevant to Health Maintenance Insurance [facility] C3 HSN FULL DENTAL-[facility] MEDICAID STAND ADULT Care Teams Sql Report Writer Relationship Specialty Start Date End Date Name, MD Scott [address] [place] [address] PCP - General Family Medicine 12/25/17
--- OUTSIDE RECORDS SUMMARY | 2024-04-15 14:40 | XMS_ITS | Encounter Summary ---
Author Organization [employer] Address [address] [facility] 7t [place] [address] Care Team Providers Care Civil Process Server Name Role Phone Name, Scott RICHTER Primary Care Provider [phone] Reason for Visit * Reason Comments Care Coordination C3 YASSINE renteria telephone call outreach Encounter Details Date Type Department Care Team (Latest Contact Info) Description 04/15/2024 Patient Outreach [facility] [address] [place] [address] Name, MD Scott [address] [place] [address] Care Coordination (C3 YASSINE Castellon telephone call outreach) Social History Tobacco Use Types Packs/Day Years Used Date Smoking Tobacco: Former Cigarettes Smokeless Tobacco: Never Alcohol Use Standard Drinks/Week Comments Never 0 [...] not to disclose 2021 10:34 AM EDT documented as of this encounter Progress Notes * Chelsey Castellon - 04/15/2024 10:21 AM EST CHW Chelsey Castellon, placed outbound call to patient in regard to offer services. CHW introducing herself from [facility] CM Department with CHW's name, department and direct contact number requesting call back. Will re-attempt to contact within 5 days. and address not confirmed. documented in this encounter Plan of Treatment Upcoming Encounters Date Type Department Care Team (Late st Contact Info) Description 05/25/2024 10:45 AM EDT Office Visit [facility] [address] [place] [phone] Kristan Wetzel MD [address] [place] [address] 07/07/2024 11:15 AM EDT Office Visit [facility] [address] [place] [phone] Scott Greco MD [address] [place] [phone] documented as of this encounter Visit Diagnoses Not on filedocumented in this encounter Additional Health Concerns Assessment Noted Time PHQ-9 Depression Total Score: 21 023 9:35 AM EDT documented as of this encounter Care Teams Civil Process Server Relationship Specialty Start Date End Date Name, MD Scott [address] [place] [address] PCP - General Family Medicine 12/25/17 documented as of this encounter
--- OUTSIDE RECORDS SUMMARY | 2024-04-15 14:40 | XMS_ITS | Encounter Summary ---
Author Organization [employer] Address [address] [facility] 7t [place] [address] Care Team Providers Care Safe Deposit Attendant Name Role Phone Name, Scott RICHTER Primary Care Provider [phone] Reason for Visit * Reason Comments Med Refill Encounter Details Date Type Department Care Team ([facility] st Contact Info) Description 06/01/2023 Refill [facility] [address] [place], [place] [phone] Dorita Landers MD [address] [place] [address] Social History Tobacco Use Types Packs/Day Years Used Date Smoking Tobacco: Former Cigarettes Smokeless Tobacco: Never Alcohol Use Standard Drinks/Week Comments Never 0 (1 standard drink = 0.6 oz pur e alcohol) Depression Answer Date Recorded Patient Health Questionnaire-9 Score 21 11/27/2022 Housing Stability Answer Date Recorded What is your housing situation today? I do not have housing (Staying with others, in a hotel, in a mcfp, living outside on the street, on a beach, in a car, or in a park 12/02/[address] you li ve. Do you have problems with any of the following? None of the above 12/02/2022 Food Insecurity Answer Date Recorded Within the past 12 months, y ou worried that your food would run out before you got money to buy more: Often true 12/11/2022 Within the past 12 months,th e food you bought just didn't last and you didn't have enough money to get more: Often true Transportation Answer Date Recorded In the past [...] Recorded Patient Health Questionnaire-2 Score 6 11/27/2022 Sex and Gender Information Value Date Recorded Sex Assigned at Male 12/23/2021 10:34 AM EDT Legal Sex Male 10:34 AM EDT Gender Identity Male 12/23/2021 10:34 AM EDT Sexual Orientation Choose not to disclose 2021 10:34 AM EDT documented as of this encounter Plan of Treatment Upcoming Encounters Date Type Department Care Team (Late st Contact Info) Description 05/25/2024 10:45 AM EDT Office Visit [facility] [address] [place] [phone] Kristan Wetzel MD [address] [place] [phone] 07/07/2024 11:15 AM EDT Office Visit [address] [address] Name, MD Scott [address] [place] [phone] documented as of this encounter Visit Diagnoses Not on filedocumented in this encounter Additional Health Concerns Assessment Noted Time PHQ-9 Depression Total Score: 21 023 9:35 AM EDT documented as of this encounter Care Teams Safe Deposit Attendant Relationship Specialty Start Date End Date Name, MD Scott [address] [place] [phone] PCP - General Family Medicine 12/25/17 documented as of this encounter
--- OUTSIDE RECORDS SUMMARY | 2024-04-15 14:40 | XMS_ITS | Encounter Summary ---
Author Organization [employer] Address [address] [facility] [address] 7[address] [place] [address] Care Team Providers Care Food Safety Field Specialist Name Role Phone Name, Scott RICHTER Primary Care Provider [phone] Reason for Visit * Reason Onset Date Comments Care Management 04/[facility] Encounter Details Date Type Department Care Team ([facility] st Contact Info) Description 04/15/2024 Telephone [facility] [address] [place], [place] [phone] Name, MD Scott [address] [place] [address] Care Management (C3CM- chart review) Social History Tobacco Use Types Packs/Day Years [...] AM EDT documented as of this encounter Miscellaneous Notes * Telephone Encounter - Cleveland Sy RN - 04/15/2024 8:35 AM EST CM Cleveland Sy RN, performed chart review, in anticipation of initial assessment with patient, aspatient has stratified for [facility] through the ADT feed. History significant for underweight, substance abuse, crack cocaine use, stimulant use disorder, alcohol use disorder, severe anxiety, T1DM, severe episode of recurrent major depressive disorder without psychotic features, hyperglycemia. Specialists include [facility] behavioral health, [facility] dental, [facility] endocrinology and diabetes. ED visits within the last 12 months include [facility] 04/14/24, [facility] 12/06/23, [facility] 07/31/23-08/03/23, [facility] 06/25/23, [facility] 05/27/23-05/27, [facility] 05/19-05/21/23, [facility] 05/20-05/23/23. Last appointment in PCP office on 06/01/23. Next appointment scheduled for 05/25/24. documented in this encounter Plan of Treatment Upcoming Encounters Date Type Department Care Team (Late st Contact Info) Description 05/25/2024 10:45 AM EDT Office Visit [facility] [address] [place] [phone] Kristan Wetzel MD [address] [place] [address] 07/07/2024 11:15 AM EDT Office Visit [facility] [address] [place] [address] Name, MD Scott [address] [place] [phone] documented as of this encounter Visit Diagnoses Not on filedocumented in this encounter Additional Health Concerns Assessment Noted Time PHQ-9 Depression Total Score: 21 023 9:35 AM EDT documented as of this encounter Care Teams Food Safety Field Specialist Relationship Specialty Start Date End Date Name, MD Scott [address] [place] [phone] PCP - General Family Medicine 12/25/17 documented as of this encounter
--- OUTSIDE RECORDS SUMMARY | 2024-04-15 14:40 | XMS_ITS | Encounter Summary ---
Author Organization [employer] Address [address] [facility] [address] [place] [address] Care Team Providers Care Wood Caulker Name Role Phone Name, Scott RICHTER Primary Care Provider [phone] Reason for Visit * Reason Comments Leg Pain Encounter Details Date Type Department Care Team ([facility] st Contact Info) Description 04/15/2024 1:20 PM EST Office Visit [facility] [address] [place] [address] Pain of left lower extremity (Primary Dx); Acute pain of left knee Social History Tobacco Use Types Packs/Day Years [...] AM EDT documented as of this encounter Last Filed Vital Signs Vital Sign Reading Time Taken Comments Blood Pressure 120/78 04/15/2024 1:57 PM EST Pulse 96 04/15/2024 1:11 PM EST Temperature 36.8 ??C (98.3 ??F) 04/15/2024 1:11 PM ES T Respiratory Rate 16 04/15/2024 1:11 PM EST Oxygen Saturation - - Inhaled Oxygen Concentration - - Weight - - Height - - Body Mass Index - - documented in this encounter Plan of Treatment Upcoming Encounters Date Type Department Care Team (Late st Contact Info) Description 05/25/2024 10:45 AM EDT Office Visit [facility] [address] [place] [phone] Kristan Wetzel MD [address] [place] [phone] 07/07/2024 11:15 AM EDT Office Visit [facility] [address] [place] [address] Name, MD Scott [address] [place] [phone] Scheduled Orders Name Type Priority Associated Diagnoses Orde r Schedule XR Knee 4+ Views Left Imaging Routine Acute pain of left knee Expected: 04/15/2024, Expires: 04/15/2025 documented as of this encounter Visit Diagnoses Diagnosis Pain of left lower extremity- Primary Acute pain of left knee documented in this encounter Additional Health Concerns Assessment Noted Time PHQ-9 Depression Total Score: 21 023 9:35 AM EDT documented as of this encounter Care Teams Wood Caulker Relationship Specialty Start Date End Date Name, MD Scott [address] [place] [address] PCP - General Family Medicine 12/25/17 documented as of this encounter
--- OUTSIDE RECORDS SUMMARY | 2024-04-15 14:40 | XMS_ITS | Encounter Summary ---
Author Organization [employer] Address [address] [place] [address] Care Team Providers Care Stucco Applicator Name Role Phone Name, Scott RICHTER Primary Care Provider [phone] Reason for Visit * Reason Comments Pre-visit Planning Pre visit planning- SDOH unable to complete Encounter Details Date Type Department Care Team ([facility] st Contact Info) Description 03/17/2024 Patient Outreach [facility] [address] [place] [address] Jeferson Brenner Pre-visit Planning (Pre visit planning- SDOH unable to complete) Social History Tobacco Use Types Packs/Day Years [...] as of this encounter Progress Notes * Jeferson Brenner - 03/17/2024 10:04 AM EST CC Jeferson Robles placed successful outbound call to patient for pre-visit planning. Patient name and confirmed by Father. Patient's Father stated they will advise patient to contact [facility]. documented in this encounter Plan of Treatment Upcoming Encounters Date Type Department Care Team (Late st Contact Info) Description 05/25/2024 10:45 AM EDT Office Visit [facility] [address] [place] [phone] Kristan Wetzel MD [address] [place] [phone] 07/07/2024 11:15 AM EDT Office Visit [facility] [address] [place] [phone] Scott Greco MD [address] [place] [phone] documented as of this encounter Visit Diagnoses Not on filedocumented in this encounter Additional Health Concerns Assessment Noted Time PHQ-9 Depression Total Score: 21 023 9:35 AM EDT documented as of this encounter Care Teams Stucco Applicator Relationship Specialty Start Date End Date Scott Greco MD [address] [place] [id number] PCP - General Family Medicine 12/25/17 documented as of this encounter
--- OUTSIDE RECORDS SUMMARY | 2024-04-15 14:40 | XMS_ITS | Encounter Summary ---
Author Organization [employer] Address [address] [facility] [address] [place] [address] Care Team Providers Care Commercial Credit Portfolio Manager Name Role Phone Name, Scott RICHTER Primary Care Provider [phone] Encounter Details Date Type Department Care Team (Late st Contact Info) Description 10/31/2022 Orders Only [facility] [address] [place], [place] [phone] Kimberli Mcfarland LPN Social History Tobacco Use Types Packs/Day Years Used Date Smoking Tobacco: Some Days Cigarettes Sex and Gender Information Value Date Recorded [...] Description 05/25/2024 10:45 AM EDT Office Visit [address] [address] Kristan Wetzel MD [address] [place] [phone] 07/07/2024 11:15 AM EDT Office Visit [facility] [address] [place] [phone] Scott Greco MD [address] [place] [phone] documented as of this encounter Visit Diagnoses Not on filedocumented in this encounter Additional Health Concerns Assessment Noted Time PHQ-9 Depression Total Score: 19 023 3:27 PM EDT documented as of this encounter Care Teams Commercial Credit Portfolio Manager Relationship Specialty Start Date End Date Name, MD Scott [address] [place] [address] PCP - General Family Medicine 12/25/17 documented as of this encounter
== END 2024-04-15 14:18 | disposition home or self-care (01) ==
LOC: HO.HHCX 14:17
PROVIDERS: Visit Provider Nurse Practitioner
DX: M25.562 Pain in left knee (principal)
CPT/HCPCS: 73564

== ENCOUNTER → 2024-04-15 14:18 | Outpatient (BNV) | payer MEDICAID, SELFPAY | PROVIDERS: Visit Provider Radiology Diagnostic Radiology | DX: M25.562 Pain in left knee (principal); Q74.1 Congenital malformation of knee | CPT/HCPCS: 73564 ==